=== PATIENT | male | born 1950 | race Caucasian/White ===

== ENCOUNTER → 2016-12-27 | Outpatient (CLI) | payer MEDICARE ==
--- NOTE | 2016-12-27 10:01 | BD ---
EXAMINATION TYPE: MG DEXA axial skeleton. DATE OF EXAM: 12/27/2016 COMPARISON: NONE CLINICAL HISTORY: R29.890 DECREASE IN HEIGHT, Z87.891 EX SMOKER Height: 65.6 Weight: 172 FRAX RISK QUESTIONS: Alcohol (3 or more units per day): MAYBE 1-2 Family History (Parent hip fracture): NO KNOWN FRACTURES Glucocorticoids (More than 3mos): YES (Ex: prednisone, prednisolone, methylprednisolone, dexamethasone, and hydrocortisone). History of Fracture in Adulthood: NO...NOT AFTER 50 YRS OLD Secondary Osteoporosis: NO 1. Type 1 Diabetes: NO 2. Hyperthyroidism: NO 3. Menopause before 45: NA 4. Malnutrition: NO 5. Chronic liver disease: HEP C Rheumatoid Arthritis: NO Current Tobacco Use: QUIT 12 YRS AGO RISK FACTORS HISTORY OF: Family History of Osteoporosis: YES, HIS SISTER Smoke tobacco: QUIT 12 YRS AGO Drink Alcohol: DAILY...STATES, SOCIAL + Active: SOMEWHAT SEDENTARY Diet low in dairy products/other sources of calcium: NO Adrenal Insufficiency: NO HEIGHT LOSS MEDICATIONS: Prednisone or other steroids: YES, ADVAIR, COMBIVENT, SPIRIVA, PREDNISONE How Long: FOR YRS Additional Medications: CILIAS, Additional History: NONE TO NOTE EXAM MEASUREMENTS: Bone mineral densitometry was performed using the [employer] System. Bone mineral density as measured about the Lumbar spine is: ----- L1-L4(G/cm2): 1.083 T Score Values are as follows: ----- L1: -0.8 ----- L2: -0.4 ----- L3: -0.5 ----- L4: -1.6 ----- L1-L4: -0.8 Bone mineral density THIS IS HIS FIRST BONE DENSITY STUDY......BASELINE Bone mineral density about the R hip (g/cm2): 0.948 Bone mineral density about the L hip (g/cm2): 0.886 T Score values are as follows: -----R Neck: -1.5 -----L Neck: -0.8 -----R Total: -0.5 -----L Total: -1.0 Bone mineral density BASELINE STUDY TODAY... FRAX%'S: A 7.0% CHANCE OF A MAJOR OSTEOPOROTIC FX AND A 1.4% CHANCE OF A HIP FX.....PROBABILITY OF F X IN 10 YRS TIME IMPRESSION: Osteopenia (T Score between -2.5 and -1 as noted by T score values There is slightly increased risk of fracture and the patient may be considered for treatment. Re-Screen 2-5 years. Femoral neck level in left hip. NOTE: T-SCORE=SD OF THE YOUNG ADULT MEAN.
--- NOTE | 2016-12-27 10:20 | US ---
EXAMINATION TYPE: US duplex aorta DATE OF EXAM: 12/27/2016 COMPARISON: NONE CLINICAL HISTORY: Decrease in height R29.890, Z87.891 Ex smoker. EXAM MEASUREMENTS: Abdominal Aorta: Proximal: 2.3cm Mid: not visualized due to overlying bowel gas Distal: 1.6cm Bifurcation: 1.0cm 0.8cm Slightly suboptimal, visualized portion of aorta show no aneurysmal change. IMPRESSION: Suboptimal study, visualized portion of aorta through the bifurcation shows no greater th an 3 cm aneurysm. Portions of mid segment are obscured.
== END | disposition home or self-care (01) ==
LOC: RADUSWWP 08:12
PROVIDERS: ATTEND Family Medicine
DX: M85.852 Other specified disorders of bone density and structure, left thigh (principal); I71.4 Abdominal aortic aneurysm, without rupture; R29.890 Loss of height; Z87.891 Personal history of nicotine dependence
CPT/HCPCS: 77080; 93979

== ENCOUNTER → 2017-03-25 | Outpatient (CLI) | payer MEDICARE ==
--- NOTE | 2017-03-25 14:14 | XR ---
EXAMINATION TYPE: XR ribs LT DATE OF EXAM: 03/25/2017 COMPARISON: NONE HISTORY: Left-sided rib pain TECHNIQUE: 4 views are submitted. FINDINGS: There is hyperinflation suggestive of COPD. Pleural-based thickening is noted laterally jason ng the chest wall. Rib cage is intact. No acute displaced rib fracture. Vague attenuation within the head of the humerus is seen on the basis of a small bone infarct. IMPRESSION: 1. No acute displaced rib fracture. 2. Correlate for COPD.
== END ==
LOC: RADXRMAIN 13:56
PROVIDERS: ATTEND Internal Medicine
DX: S22.39XA Fracture of one rib, unspecified side, initial encounter for closed fracture (principal)

== ENCOUNTER → 2020-01-30 | Outpatient (CLI) | payer MEDICARE ==
[2020-01-30 09:07] LABS: African American GFR (CKD) >90 (>60 ml/min/1.73 sqM); Blood Urea Nitrogen 26 mg/dL (9-20); Non-African American GFR(CKD) >90 (>60 ml/min/1.73 sqM)
--- NOTE | 2020-01-30 10:16 | CT ---
EXAMINATION TYPE: CT chest w con DATE OF EXAM: 01/30/2020 COMPARISON: Chest x-ray 01/16/2020 HISTORY: abnormal lung field CT DLP: 352.9 mGycm Automated exposure control for dose reduction was used. CONTRAST: CT scan of the chest is performed with IV Contrast, patient injected with 100 mL of Isovue 300. FINDINGS: LUNGS: There is diffuse emphysematous changes with bullous emphysema noted. There is a 7 mm nodule in the anterior segment of the right upper lobe on axial image 53. No pneumothorax, pleural effusion or overt failure. No focal pneumonia. Subsegmental changes involvin g the lung bases most typical of atelectasis. MEDIASTINUM: Coronary artery calcification. Aorta of normal caliber with atherosclerotic changes. Hea rt size normal. OTHER: Numerous gallstones are seen. Atherosclerotic change of the abdominal aorta. Hypertrophic and degenerative change of the spine. IMPRESSION: 1. Diffuse COPD with a 7 mm nodule in the right upper lobe anterior segment. Nodules too small to champ racterize would recommend a 3 month follow-up CT scan to confirm stability.
== END | disposition home or self-care (01) ==
LOC: RADCTMAIN 08:31
PROVIDERS: ATTEND Internal Medicine
DX: J44.9 Chronic obstructive pulmonary disease, unspecified (principal); R91.1 Solitary pulmonary nodule; Z88.0 Allergy status to penicillin; Z88.8 Allergy status to other drugs, medicaments and biological substances
CPT/HCPCS: 82565; 84520; 71260; 36415; Q9967

== ENCOUNTER → 2021-11-30 | Outpatient (CLI) | payer MEDICARE ==
[2021-11-30 09:33] LABS: African American GFR (CKD) >90 (>60 ml/min/1.73 sqM); Blood Urea Nitrogen 21 mg/dL (9-20); Non-African American GFR(CKD) 87 (>60 ml/min/1.73 sqM)
--- NOTE | 2021-11-30 10:36 | CT ---
EXAMINATION TYPE: CT chest w con DATE OF EXAM: 11/30/2021 COMPARISON: CT dated 01/30/2020 HISTORY: h/o lung nodule CT DLP: 348.6 mGycm Automated exposure control for dose reduction was used. TECHNIQUE: CT scan of the chest is performed with IV Contrast, patient injected with 100 mL of Isovue 300. FINDINGS: LUNGS: The previously described 7 mm nodule at the anterior aspect of the middle lobe has regressed i n the interim measuring less than 3 mm today consistent with a benign nodule. The other previously se en scattered pulmonary nodules are stable without interval progression. Stable atelectasis with groun dglass opacity in the lower lobes. Extensive COPD changes with multiple paraseptal emphysema and air bulla, largest in the right lung apex. Scattered segments of bronchial wall thickening. Patent trache a and main bronchi. No pleural effusion. MEDIASTINUM: No gross cardiomegaly. Coronary calcification/stents. No pathologically enlarged lymph n odes in the chest. No pericardial effusion. OTHER: Cholelithiasis. Degenerative changes of the lower cervical spine. IMPRESSION: Interval regression of the previously seen right middle lobe 7 mm nodule as described above. No new s uspicious or progressive lung lesion. COPD changes. Other incidental findings as described above.
== END | disposition home or self-care (01) ==
LOC: RADCTMAIN 08:46
PROVIDERS: ATTEND Internal Medicine
DX: R91.1 Solitary pulmonary nodule (principal); J44.9 Chronic obstructive pulmonary disease, unspecified
CPT/HCPCS: 82565; 84520; 71260; 36415; Q9967

== ENCOUNTER 2024-06-06 20:22 | Inpatient (IN) | payer MEDICARE ==
--- NOTE | 2024-06-06 20:29 | ED ---
Chest Pain HPI - General Stated Complaint: Chest pain Time Seen by Provider: 06/06/24 20:28 Source: RN notes reviewed, old records reviewed Mode of arrival: ambulatory Limitations: no limitations - History of Present Illness Initial Comments: This is a 73-year-old male to the ER for evaluation today. Patient notes today for evaluation of chest pain severe chest pain feels like he is having a heart attack. Patient has had a right upper blebectomy recently, patient comes in for severe chest pain some shortness of breath but mainly complaining of severe pain pain to his back MD Complaint: chest pain -: hour(s) Onset: during rest Pain Location: substernal, right chest Pain Radiation: back Severity: moderate, severe Severity scale (1-10): 10 Quality: tightness, sharp Consistency: constant Improves With: nothing Worsens With: nothing Anginal Symptoms: dyspnea, sense of impending doom Other Symptoms: palpitations Treatments Prior to Arrival: none - Related Data Allergies Allergy/AdvReac Type Severity Reaction Status Date / Time Penicillins Allergy Rash/Hives Verified 06/06/24 20:40 Review of Systems ROS Statement: Those systems with pertinent positive or pertinent negative responses have been documented in the HPI. ROS Other: All systems not noted in ROS Statement are negative. EKG Findings - EKG Comments: EKG Findings:: EKG is A-fib 77 QRS 101 QTc 444 - EKG Results: EKG: interpreted by ERMD General Exam General appearance: alert, in no apparent distress, anxious, in distress Head exam: Present: atraumatic, normocephalic, normal inspection Eye exam: Present: normal appearance, PERRL, EOMI. Absent: scleral icterus, conjunctival injection, periorbital swelling ENT exam: Present: normal exam, mucous membranes moist Neck exam: Present: normal inspection. Absent: tenderness, meningismus, lymphadenopathy Respiratory exam: Present: normal lung sounds bilaterally. Absent: respiratory distress, wheezes, rales, rhonchi, stridor Cardiovascular Exam: Present: regular rate, normal rhythm, normal heart sounds. Absent: systolic murmur, diastolic murmur, rubs, gallop, clicks GI/Abdominal exam: Present: soft, normal bowel sounds. Absent: distended, tenderness, guarding, rebound, rigid Extremities exam: Present: normal inspection, full ROM, normal capillary refill. Absent: tenderness, pedal edema, joint swelling, calf tenderness Back exam: Present: normal inspection Neurological exam: Present: alert, oriented X3, CN II-XII intact Psychiatric exam: Present: normal affect, normal mood Skin exam: Present: warm, dry, intact, normal color. Absent: rash Course Vital Signs 06/06/24 06/06/24 20:32 21:00 Temperature 98.4 F Pulse Rate 87 86 Respiratory 22 22 Rate Blood Pressure 90/67 102/74 O2 Sat by Pulse 98 97 Oximetry - Reevaluation(s) Reevaluation #1: 06/06/24 20:29 Medical records reviewed Reevaluation #2: 06/06/24 22:25 patients pain is improved Reevaluation #3: 06/06/24 22:25 patient is informed of results and quesitons answered Reevaluation #4: Was pt. sent in by a medical professional or institution (, [facility], ACADEMIC SPECIALIST, urgent care, hospital, or senior living...) When possible be specific @ -no Did you speak to anyone other than the patient for history (EMS, parent, family, police, friend...)? What history was obtained from this source @ -no Did you review nursing and triage notes (agree or disagree)? Why? @ -agree Are old charts reviewed (outside hosp., previous admission, EMS record, old EKG, old radiological studies, urgent care reports/EKG's, senior living records)? Report findings @ -yes Differential Diagnosis (chest pain, altered mental status, abdominal pain women, abdominal pain men, vaginal bleeding, weakness, fever, dyspnea, syncope, headache, dizziness, GI bleed, back pain, seizure, CVA, palpatations, mental health, musculoskeletal)? @ -prior EKG interpreted by me (3pts min.). @ -yes X-rays interpreted by me (1pt min.). @ -yes negative for acute disease CT interpreted by me (1pt min.). @ -no U/S interpreted by me (1pt. min.). @ -no What testing was considered but not performed or refused? (CT, X-rays, U/S, labs)? Why? @ -none What meds were considered but not given or refused? Why? @ -none Did you discuss the management of the patient with other professionals (professionals i.e. Dr., PA, ACADEMIC SPECIALIST, lab, RT, psych nurse, social insurance specialist, bore miner operator, teacher, court security officer, machine adjuster leader case trim)? Give summary @ -no Was smoking cessation discussed for >3mins.? @ -no Was critical care preformed (if so, how long)? @ -no Were there social determinants of health that impacted care today? How? (Homelessness, low income, unemployed, alcoholism, drug addiction, transportation, low edu. Level, literacy, decrease access to med. care, long-term, rehab)? @ -none Was there de-escalation of care discussed even if they declined (Discuss DNR or withdrawal of care, Hospice)? DNR status @ -no What co-morbidities impacted this encounter? (DM, HTN, Smoking, COPD, CAD, Cancer, CVA, ARF, Chemo, Hep., AIDS, mental health diagnosis, sleep apnea, morbid obesity)? @ -none Was patient admitted / discharged? Hospital course, mention meds given and route, prescriptions, significant lab abnormalities, going to OR and other pertinent info. @ - Undiagnosed new problem with uncertain prognosis? @ -no Drug Therapy requiring intensive monitoring for toxicity (Heparin, Nitro, Insulin, Cardizem)? @ -no Were any procedures done? @ -no Diagnosis/symptom? @ - Acute, or Chronic, or Acute on Chronic? @ -Acute Uncomplicated (without systemic symptoms) or Complicated (systemic symptoms)? @ -Complicated Side effects of treatment? @ -no Exacerbation, Progression, or Severe Exacerbation? @ -exacerbation Poses a threat to life or bodily function? How? (Chest pain, [place], [place], pneumonia, PE, COPD, DKA, ARF, appy, cholecystitis, CVA, Diverticulitis, Homicidal, Suicidal, threat to staff... and all critical care pts) @ -yes Reevaluation #5: Differential Chest Pain: Stable Angina, Unstable Angina, STEMI, NSTEMI Aortic Dissection, Pneumothorax, Musculoskeletal, Esophageal Spasm GERD, Cholecystitis, Pancreatitis, Zoster, this is not meant to be an all-inclusive list. - Consultations Consultation #1: spoke yvette mckinney ok for admission Chest Pain MDM - MDM 73 male to the ED for CP, patient to be admitted for CP obs Disposition Clinical Impression: Chest pain, Atypical chest pain Disposition: ADMITTED IP TO THIS HOSP Condition: Serious Is patient prescribed a controlled substance at d/c from ED?: No Referrals: Marcelino Noble MD [Primary Care Provider] - 1-2 days Time of Disposition: 22:50
[2024-06-06 20:51] LABS: Basophils % (A) 0 %; Eosinophils # (A) 0.2 k/uL (0-0.7); Eosinophils % (A) 1 %; HCT 27.9 % (39.0-53.0); HGB 9.2 gm/dL (13.0-17.5); Lymphocytes # (A) 0.7 k/uL (1.0-4.8); Lymphocytes % (A) 5 %; MCHC 33.1 g/dL (31.0-37.0); MCV 90.7 fL (80.0-100.0); Mean Platelet Volume 6.8; Monocytes # (A) 0.5 k/uL (0-1.0); Monocytes % (A) 4 %; Neutrophils # (A) 11.2 k/uL (1.3-7.7); Neutrophils % (A) 88 %; Platelet Count 378 k/uL (150-450); Poikilocytosis Slight; RBC 3.08 m/uL (4.30-5.90); WBC 12.7 k/uL (3.8-10.6)
[2024-06-06 21:00] LABS: INR 1.3 (<1.2); Partial Thromboplastin Time 28.2 sec (22.0-30.0); Prothrombin Time 13.5 sec (10.0-12.5)
[2024-06-06 21:09] LABS: ALT 23 U/L (4-49); AST 30 U/L (17-59); African American GFR (CKD) 89 (>60 ml/min/1.73 sqM); Albumin 3.1 g/dL (3.5-5.0); Alkaline Phosphatase 99 U/L (38-126); Blood Urea Nitrogen 17 mg/dL (9-20); Calcium 8.1 mg/dL (8.4-10.2); Chloride 89 mmol/L (98-107); Glucose 145 mg/dL (74-99); Lipase 184 U/L (23-300); Magnesium 1.8 mg/dL (1.6-2.3); Non-African American GFR(CKD) 77 (>60 ml/min/1.73 sqM); Sodium 130 mmol/L (137-145); Total Bilirubin 0.3 mg/dL (0.2-1.3); Total Protein 6.7 g/dL (6.3-8.2)
[2024-06-06] MEDS: HYDROmorphone 1 MG/ML 1 ML SYRINGE IVP STA (21:09)
[2024-06-06 21:14] LABS: Anion Gap 8 mmol/L; Carbon Dioxide 33 mmol/L (22-30)
--- NOTE | 2024-06-06 21:16 | XR ---
EXAMINATION TYPE: XR chest 1V portable DATE OF EXAM: 06/06/2024 9:05 PM COMPARISON: Chest radiographs from 03/25/2017 CLINICAL INDICATION: Male, 73 years old with history of chest pain TECHNIQUE: XR chest 1V portable Frontal view of the chest. FINDINGS: Lungs/Pleura: Right apical lucency with loculated right pleural effusion superimposed on COPD/emphyse ma. Increased interstitial lung markings present. Pulmonary vascularity: Unremarkable. Heart/mediastinum: Cardiomediastinal silhouette is unremarkable. Musculoskeletal: No acute osseous pathology. IMPRESSION: Right apical loculated pleural effusion, superimposed pneumothorax not excluded. Attention on follow up CT. [facility], , 06/06/2024 9:14 PM
[2024-06-06 21:17] LABS: NT-Pro-B-Type Natriuretic Pept 2550 pg/mL
[2024-06-06 21:28] LABS: Potassium 2.7 mmol/L (3.5-5.1)
[2024-06-06] MEDS ORDERED: NALOXONE 0.4 MG/ML 1 ML VIAL IV PRN (22:22)
[2024-06-06] MEDS ORDERED: ONDANSETRON 4 MG/2 ML VIAL IVP PRN (22:22)
[2024-06-06] MEDS: SODIUM CHLORIDE 0.9% 1,000 ML IV SCH (22:26)
[2024-06-06] MEDS: POTASSIUM BICARBONATE/CIT AC 20 MEQ TABLET.EFF PO ONE ×2 (22:26→23:05)
[2024-06-06] MEDS: HYDROmorphone 1 MG/ML 1 ML SYRINGE IVP PRN (22:44)
--- NOTE | 2024-06-07 00:06 | CT ---
EXAM: CT Angiography Chest With Intravenous Contrast CLINICAL HISTORY: ITS.REASON CT Reason: pain TECHNIQUE: Axial computed tomographic angiography images of the chest with intravenous contrast. CTDI is 28.1 mGy and DLP is 1455.4 mGy-cm. This CT exam was performed using one or more of the following dose reduction techniques: automated exposure control, adjustment of the mA and/or kV according to patient size, and/or use of iterative reconstruction technique. MIP reconstructed images were created and reviewed. COMPARISON: No relevant prior studies available. FINDINGS: Pulmonary arteries: Unremarkable. No pulmonary embolism. Aorta: Atherosclerotic changes of the aorta. No thoracic aortic aneurysm. Lungs: Atelectasis at the LEFT lung base. Small collection in the LEFT lung base measuring approximately 2.8 cm, concerning for a pneumatocele. No mass. Pleural space: Unremarkable. No significant effusion. No pneumothorax. Heart: Unremarkable. No cardiomegaly. No significant pericardial effusion. No evidence of RV dysfunction. Bones/joints: Degenerative changes of the spine. Bilateral pars defects at L5. Bilateral femoral head AVN. No acute fracture. No dislocation. Soft tissues: Unremarkable. Lymph nodes: Unremarkable. No enlarged lymph nodes. Gallbladder and bile ducts: Cholelithiasis. Stomach and bowel: Diverticulosis, without acute diverticulitis. No small bowel obstruction. No free intraperitoneal air. IMPRESSION: Diverticulosis, without acute diverticulitis. No small bowel obstruction. No free intraperitoneal air.
--- NOTE | 2024-06-07 00:35 | CT ---
EXAM: CT Abdomen and Pelvis With Intravenous Contrast CLINICAL HISTORY: ITS.REASON CT Reason: pain TECHNIQUE: Axial computed tomography images of the abdomen and pelvis with intravenous contrast. CTDI is 28.1 mGy and DLP is 1455.4 mGy-cm. This CT exam was performed using one or more of the following dose reduction techniques: automated exposure control, adjustment of the mA and/or kV according to patient size, and/or use of iterative reconstruction technique. COMPARISON: No relevant prior studies available. FINDINGS: Lung bases: Unremarkable. No mass. No consolidation. ABDOMEN: Liver: Unremarkable. No mass. Gallbladder and bile ducts: Cholelithiasis. No ductal dilation. Pancreas: Unremarkable. No mass. No ductal dilation. Spleen: Unremarkable. No splenomegaly. Adrenals: Unremarkable. No mass. Kidneys and ureters: Unremarkable. No solid mass. No hydronephrosis. Stomach and bowel: Diverticulosis, without acute diverticulitis. No small bowel obstruction. No free intraperitoneal air. PELVIS: Appendix: No findings to suggest acute appendicitis. Bladder: Unremarkable. No mass. Reproductive: Unremarkable as visualized. ABDOMEN and PELVIS: Intraperitoneal space: Unremarkable. No free air. No significant fluid collection. Bones/joints: Bilateral pars defects at L5. No acute fracture. No dislocation. Soft tissues: Unremarkable. Vasculature: Unremarkable. No abdominal aortic aneurysm. Lymph nodes: Unremarkable. No enlarged lymph nodes. IMPRESSION: Diverticulosis, without acute diverticulitis. No small bowel obstruction. No free intraperitoneal air.
--- NOTE | 2024-06-07 00:51 | P.HPIM ---
History of Present Illness H&P Date: 06/07/24 History of present illness; 73-year-old man with PMH of CAD with 1 stent alexandra cement, recently diagnosed A-fib (not maintained on Eliquis), COPD on 2-3 L NC at home 31/01. Presents to the emergency department after having severe chest pain that "feels like he is having a heart attack", endorsing severe pain in his back as well, with some associated shortness of breath. He states the pain is centrally located and radiates straight to his back, he describes it as an intense pressure-like pain that he rates as a 10/10. He states it occasionally will drop down to a 9/10, however for the most part has maintained at 10/10. Patient endorses having had a right upper lobe blebectomy for a right apical bleb that have been growing in size over the past few years. Following the surgery the patient states that he did endorse an episode of cardiac arrest for which he underwent CPR, which caused him to break 7 ribs and his sternum. He had been recovering well following that episode in the hospital, however since he is gone home he has had home care but his recovery has been slower according to the patient, as well as his at the bedside. At the time of the intervie w patient rates his pain at approximately 7/10, after receiving pain medication. He does not endorse any shortness of breath or heart palpitations. However he does have some nausea, an episode of vomiting here in the hospital. Imaging: -Chest x-ray done in the ER showed a right apical loculated pleural effusion, superimposed pneumothorax not excluded; follow-up CT recommended -Chest CTA showed atelectasis of the left lung base, along with a small collection of fluid concerning for pneumatocele; diverticulosis, without acute diverticulitis; no small bowel obstruction; no free intraperitoneal air. -CT abdomen/pelvis showed diverticulosis without acute diverticulitis. Otherwise unremarkable -EKG done in the ER showed atrial fibrillation heart rate of 76; QTc 528. Vitals: Height blood pressure 102/74, heart rate 86, respiratory rate 22, SpO2 97% on 3 L nasal cannula Patient admitted to internal medicine service REVIEW OF SYSTEMS: CONSTITUTIONAL: No fever, no malaise, no fatigue. HEENT: No recent visual problems or hearing problems. Denied any sore throat. CARDIOVASCULAR: No chest pain, orthopnea, PND, no palpitations, no syncope. PULMONARY: No shortness of breath, no cough, no hemoptysis. GASTROINTESTINAL: No diarrhea, no nausea, no vomiting, no abdominal pain. NEUROLOGICAL: No headaches, no weakness, no numbness. HEMATOLOGICAL: Denies any bleeding or petechiae. GENITOURINARY: Denies any burning micturition, frequency, or urgency. MUSCULOSKELETAL/RHEUMATOLOGICAL: Denies any joint pain, swelling, or any muscle pain. ENDOCRINE: Denies any polyuria or polydipsia. The rest of the 14-point review of systems is negative. PHYSICAL EXAMINATION: GENERAL: The patient is alert and oriented x3, not in any acute distress. Disheveled. HEENT: . EOMI. No scleral icterus. No conjunctival pallor. Normocephalic, atraumatic. CARDIOVASCULAR: S1 and S2 present. No murmurs, rubs, or gallops. PULMONARY: audible breath sounds bilaterally with expiratory wheezing ABDOMEN: Soft, nontender, nondistended, normoactive bowel sounds. No palpable organomegaly. MUSCULOSKELETAL: No joint swelling or deformity. EXTREMITIES: No cyanosis, clubbing, or pedal edema. NEUROLOGICAL: Gross neurological examination did not reveal any focal deficits. SKIN: No rashes. Assessment and plan 73-year-old man with PMH of. Presents to the emergency department with severe chest pain that radiates to his back, along with some shortness of breath noted. Discussed with the ED patient medicine internal medicine service for further evaluation. #Atypical chest pain, r/o ACS #s/p right-sided apical blebectomy in April #Recently diagnosed atrial fibrillation -Trend troponins: Initial troponins <0.012 -EKG done in the ER showed atrial fibrillation heart rate of 76; QTc 528. -Chest x-ray done in the ER showed a right apical loculated pleural effusion, superimposed pneumothorax not excluded; follow-up CT recommended -Chest CTA showed atelectasis of the left lung base, along with a small collecti on of fluid concerning for pneumatocele; diverticulosis, without acute diverticulitis; no small bowel obstruction; no free intraperitoneal air. -CT abdomen/pelvis showed diverticulosis without acute diverticulitis. Otherwise unremarkable -proBNP 2550 -Maintained at home on amiodarone 200 mg daily, metoprolol 12.5 mg twice daily, Norvasc 10 mg daily -Continue with nitroglycerin as needed for pain -Initiate aspirin 81 mg daily -Continue home rosuvastatin 40 mg daily -Cardiac monitoring -Supplemental oxygen as needed -Heart healthy diet -Cardiology consulted -Echocardiogram ordered #COPD maintained on 2-3 L nasal cannula home oxygen 31/01 -Currently maintained on nasal cannula -Monitor SpO2 -Titrate O2 as needed #Leukocytosis -Initial WBC 12.7 -Continue to monitor CBC #History of pedal edema/fluid retention -Maintained at home on torsemide 20 mg daily #Acute normocytic anemia in the setting of chronic anemia -Initial hemoglobin 9.2, MCV 90.7 -Continue to monitor CBC -If hemoglobin <7, transfusion -Maintained at home with iron pills #Hyponatremia -Initial sodium 130 -Monitor BMP #Chronic hypokalemia -Initial potassium 2.7 -Received total of 40 mEq potassium bicarbonate in the emergency department -Potassium recheck pending -Continue to monitor BMP #Hypocalcemia -Initial calcium 8.1 -Continue to monitor BMP GI prohylaxis: Protonix 40 mg daily DVT prophylaxis: Lovenox 40 mg daily Dictation was produced using [employer] dictation software. please excuse any grammatical, word or spelling errors. I have seen and evaluated the patient today. I Discussed the case with the resident and agree with the resident's findings I edited the assessment and plan as necessary as documented in the resident's note. Past Medical History Past Medical History: Atrial Fibrillation, Coronary Artery Disease (CAD), COPD, Prostate Disorder Additional Past Medical History / Comment(s): cardiac arrest 04/2024, History of Any Multi-Drug Resistant Organisms: None Reported Past Surgical History: Heart Catheterization, Heart Catheterization With Stent Past Psychological History: Anxiety, Depression Smoking Status: Former smoker Medications and Allergies Allergies Allergy/AdvReac Type Severity Reaction Status Date / Time Penicillins Allergy Rash/Hives Verified 06/06/24 20:40 Physical Exam Vitals: Vital Signs Temp Pulse Resp BP Pulse Ox 06/06/24 23:00 80 18 118/79 95 06/06/24 22:00 82 18 113/69 95 06/06/24 21:00 86 22 102/74 97 06/06/24 20:32 98.4 F 87 22 90/67 98 Intake and Output 06/06/24 06/06/24 06/07/24 14:59 22:59 06:59 Other: Weight 71.668 kg Results CBC & Chem 7: 06/06/24 20:31 06/07/24 00:28 Labs: Abnormal Lab Results - Last 24 Hours (Table) 06/06/24 06/06/24 06/06/24 Range/Units 20:31 20:31 20:31 WBC 12.7 H (3.8-10.6) k/uL RBC 3.08 L (4.30-5.90) m/uL Hgb 9.2 L (13.0-17.5) gm/dL Hct 27.9 L (39.0-53.0) % Neutrophils # 11.2 H (1.3-7.7) k/uL Lymphocytes # 0.7 L (1.0-4.8) k/uL PT 13.5 H (10.0-12.5) sec INR 1.3 H (<1.2) Sodium 130 L (137-145) mmol/L Potassium 2.7 L* (3.5-5.1) mmol/L Chloride 89 L (98-107) mmol/L Carbon Dioxide 33 H (22-30) mmol/L Glucose 145 H (74-99) mg/dL Calcium 8.1 L (8.4-10.2) mg/dL Albumin 3.1 L (3.5-5.0) g/dL
[2024-06-07] MEDS: IPRATROPIUM-ALBUTEROL 3 ML NEB INHALATION SCH ×2 (03:05→08:50)
[2024-06-07 03:38] LABS: Basophils % (A) 0 %; Eosinophils % (A) 0 %; HGB 9.4 gm/dL (13.0-17.5); Lymphocytes # (A) 0.8 k/uL (1.0-4.8); Lymphocytes % (A) 4 %; MCH 30.6 pg (25.0-35.0); MCHC 33.6 g/dL (31.0-37.0); MCV 90.9 fL (80.0-100.0); Monocytes # (A) 0.7 k/uL (0-1.0); Monocytes % (A) 4 %; Neutrophils # (A) 16.5 k/uL (1.3-7.7); Neutrophils % (A) 90 %; Platelet Count 425 k/uL (150-450); Poikilocytosis Slight; RBC 3.08 m/uL (4.30-5.90); RDW 14.4 % (11.5-15.5); WBC 18.3 k/uL (3.8-10.6)
[2024-06-07 04:38] LABS: ALT 24 U/L (4-49); AST 31 U/L (17-59); African American GFR (CKD) 74 (>60 ml/min/1.73 sqM); Albumin 3.4 g/dL (3.5-5.0); Alkaline Phosphatase 105 U/L (38-126); Blood Urea Nitrogen 20 mg/dL (9-20); Calcium 8.5 mg/dL (8.4-10.2); Chloride 88 mmol/L (98-107); Glucose 147 mg/dL (74-99); Magnesium 1.7 mg/dL (1.6-2.3); Non-African American GFR(CKD) 64 (>60 ml/min/1.73 sqM); Phosphorus 3.6 mg/dL (2.5-4.5); Potassium 3.8 mmol/L (3.5-5.1); Sodium 130 mmol/L (137-145); Total Bilirubin 0.4 mg/dL (0.2-1.3); Total Protein 7.2 g/dL (6.3-8.2)
[2024-06-07 04:43] LABS: Anion Gap 6 mmol/L; Carbon Dioxide 36 mmol/L (22-30)
[2024-06-07] MEDS: METOPROLOL SUCCINATE (ER) 25 MG TAB.ER.24H PO STA (05:15)
[2024-06-07 05:30] LABS: Appearance,Urine Clear (Clear); Bilirubin,Urine Negative (Negative); Blood,Urine Negative (Negative); Color,Urine Light Yellow; Glucose,Urine (UA) Negative (Negative); Ketones,Urine Negative (Negative); Leukocyte Esterase,Urine Negative (Negative); Nitrite,Urine Negative (Negative); PH, Urine 5.5 (5.0-8.0); Protein,Urine Trace (Negative); Urobilinogen,Urine <2.0 mg/dL (<2.0)
[2024-06-07 05:34] LABS: Specific Gravity,Urine >1.050 (1.001-1.035)
[2024-06-07] MEDS: PANTOPRAZOLE 40 MG TABLET PO SCH (06:39)
[2024-06-07] MEDS: ATORVASTATIN 40 MG TAB PO SCH (08:11)
[2024-06-07] MEDS: TORSEMIDE 20 MG TAB PO SCH (08:11)
[2024-06-07] MEDS: AMIODARONE 200 MG TAB PO SCH ×2 (08:11→20:48)
[2024-06-07] MEDS: amLODIPine 10 MG TAB PO SCH (08:11)
[2024-06-07] MEDS: METOPROLOL SUCCINATE (ER) 25 MG TAB.ER.24H PO SCH (08:12)
[2024-06-07] MEDS: ONDANSETRON 4 MG/2 ML VIAL IVP PRN (13:05)
--- NOTE | 2024-06-07 13:12 | P.CRDCN ---
History of Present Illness Consult date: 06/07/24 Requesting physician: Camila Dimas Reason for Consult (text): chest pain Chief complaint: chest pain History of present illness: This is a pleasant 73-year-old male patient of Dr. Allison with past medical history of atrial fibrillation, COPD, recent right upper lobe lobectomy for right apical bleb done at [facility] after which he had an episode of cardiac arrest and underwent CPR causing fractures to 7 ribs and his sternum. Since that time he has been having ongoing chest discomfort.. Presented to the hospital with complaints of significant worsening of his chest discomfort that he rated a 10 out of 10. The pain was worse with deep inspiration. Pain was improved with pain medications given in the ER. Currently rating the pain about 6 out of 10 and at its best about a 4 out of 10. Diagnostics -EKG: Atrial fibrillation nonspecific ST-T wave abnormalities -Chest x-ray: Right apical loculated pleural effusion, superimposed pneumothorax not excluded, attention on follow-up CT -CT: Diverticulosis, without acute diverticulitis, no small bowel obstruction, no free intraperitoneal air -Laboratory studies: White blood cell count 18.3, hemoglobin 9.4, sodium 130, potassium 3.8, BUN 20, creatinine 1.13, troponin negative x 3, NT proBNP 2550 -Home cardiac medications: Rosuvastatin 20 mg p.o. daily, torsemide 20 mg p.o. daily, potassium 40 mill equivalents p.o. daily, metoprolol tartrate 25 mg p.o. twice daily, Eliquis 5 mg p.o. twice daily, amiodarone 200 mg p.o. twice daily. Patient was previously on amlodipine however stopped this due to potential side effects and blood pressure has been stable -Prior stress test: 02/2024 no evidence of ischemia -Echocardiogram: Unknown -Cardiac catheterization: Unknown Review Of Systems: At the time of my exam: CONSTITUTIONAL: Denies fever or chills. HEENT: Denies blurred vision, vision changes. CARDIOVASCULAR: reproducible chest pain. Denies orthopnea. Denies PND. Denies palpitations, dizziness, or syncope. RESPIRATORY: Denies shortness of breath, wheezing, or cough. Denies hemoptysis. GASTROINTESTINAL: Denies abdominal pain. Denies nausea or vomiting. Denies bleeding. HEMATOLOGIC: Denies bleeding disorders. GENITOURINARY: Denies hematuria. SKIN: Denies puritis. Denies rash. PHYSICAL EXAMINATION: This is a 73-year-old male in no apparent distress at the time of my examination. VITAL SIGNS: Reviewed. HEENT: Head is atraumatic, normocephalic. Pupils are equal, round. Sclerae anicteric. Conjunctivae are clear. Mucous membranes of the mouth are moist. Neck is supple. There is no elevated jugular venous pressure. No carotid bruit is heard. CHEST EXAMINATION: Expiratory wheezing. No rales or rhonchi. Respirations even and nonlabored. HEART EXAMINATION: Heart irregular rate and rhythm, positive S1 and S2. No S3. No S4. No clicks, rubs or murmurs. ABDOMEN: Soft, nontender. Bowel sounds are heard. No organomegaly noted. EXTREMITIES: 2+ peripheral pulses with no evidence of peripheral edema and no calf tenderness noted. NEUROLOGIC EXAMINATION: Patient is awake, alert and oriented x3. Assessment: 1. Chest pain, likely secondary to trauma status post CPR 2. Persistent atrial fibrillation, anticoagulated on Eliquis 3. COPD 4. Status post right sided apical blebectomy in April Plan: From cardiology's perspective acute coronary event has been ruled out. Stay off amlodipine. Continue metoprolol tartrate 25 mg p.o. twice daily, amiodarone, torsemide and Eliquis. Patient may be discharged home and follow-up in the office as an outpatient. Thank you kindly for this consultation. Nurse practitioner note has been reviewed, I agree with documented findings and plan of care. Patient was seen and examined. Past Medical History Past Medical History: Atrial Fibrillation, Coronary Artery Disease (CAD), COPD, Prostate Disorder Additional Past Medical History / Comment(s): cardiac arrest 04/2024, History of Any Multi-Drug Resistant Organisms: None Reported Past Surgical History: Heart Catheterization, Heart Catheterization With Stent Additional Past Surgical History / Comment(s): bilat knee replacement Date of Last Stent Placement:: 2021 Past Psychological History: Anxiety, Depression Smoking Status: Former smoker Medications and Allergies Home Medications Medication Instructions Recorded Confirmed Type Amiodarone [Cordarone] 200 mg PO BID 06/07/24 06/07/24 History Apixaban [Eliquis] 5 mg PO BID 06/07/24 06/07/24 History Budesonide [Pulmicort] 0.5 mg INHALATION RT-BID 06/07/24 06/07/24 History Ferrous Sulfate [Feosol] 325 mg PO BID 06/07/24 06/07/24 History Folic Acid 1 mg PO DAILY 06/07/24 06/07/24 History Ipratropium-Albuterol Nebulize 3 ml INHALATION RT-TID 06/07/24 06/07/24 History [Duoneb 0.5 mg-3 mg/3 ml Soln] Metoprolol Tartrate [Lopressor] 25 mg PO BID 06/07/24 06/07/24 History Multivitamins, Thera [Multivitamin 1 tab PO DAILY 06/07/24 06/07/24 History (formulary)] Pantoprazole [Protonix] 40 mg PO DAILY 06/07/24 06/07/24 History Potassium Chloride ER [K-Dur 20] 40 meq PO DAILY 06/07/24 06/07/24 History Rosuvastatin [Crestor] 20 mg PO DAILY 06/07/24 06/07/24 History Sennosides-Docusate Sodium 1 tab PO BID 06/07/24 06/07/24 History [Senokot-S] Torsemide [Demadex] 20 mg PO DAILY 06/07/24 06/07/24 History Allergies Allergy/AdvReac Type Severity Reaction Status Date / Time Penicillins Allergy Rash/Hives Verified 06/07/24 09:08 sertraline [From Zoloft] AdvReac Unknown Verified 06/07/24 09:10 Physical Exam Vitals: Vital Signs Temp Pulse Pulse Resp BP BP Pulse Ox 06/07/24 12:26 108 H 06/07/24 12:17 104 H 06/07/24 09:03 100 06/07/24 08:51 102 H 06/07/24 06:45 98.3 F 114 H 18 123/75 98 06/07/24 04:52 113 H 113/74 98 06/07/24 02:06 98.8 F 114 H 19 101/63 92 L 06/07/24 01:10 06/07/24 01:00 108 H 20 104/70 95 06/06/24 23:00 80 18 118/79 95 06/06/24 22:00 82 18 113/69 95 06/06/24 21:00 86 22 102/74 97 06/06/24 20:32 98.4 F 87 22 90/67 98 FiO2 06/07/24 12:26 06/07/24 12:17 06/07/24 09:03 06/07/24 08:51 06/07/24 06:45 06/07/24 04:52 06/07/24 02:06 06/07/24 01:10 32 06/07/24 01:00 06/06/24 23:00 06/06/24 22:00 06/06/24 21:00 06/06/24 20:32 Intake and Output 06/06/24 06/07/24 06/07/24 22:59 06:59 14:59 Output Total 200 Balance -200 Output: Urine 200 Other: Voiding Method Toilet Urinal Weight 71.668 kg 71.668 kg Results 06/07/24 03:02 06/07/24 03:02 Cardiac Enzymes 06/06/24 06/06/24 06/07/24 Range/Units 20:31 20:31 00:24 AST 30 (17-59) U/L Troponin I <0.012 <0.012 (0.000-0.034) ng/mL 06/07/24 06/07/24 Range/Units 03:02 03:02 AST 31 (17-59) U/L Troponin I <0.012 (0.000-0.034) ng/mL Coagulation 06/06/24 Range/Units 20:31 PT 13.5 H (10.0-12.5) sec APTT 28.2 (22.0-30.0) sec CBC 06/06/24 06/07/24 Range/Units 20:31 03:02 WBC 12.7 H 18.3 H (3.8-10.6) k/uL RBC 3.08 L 3.08 L (4.30-5.90) m/uL Hgb 9.2 L 9.4 L (13.0-17.5) gm/dL Hct 27.9 L 28.0 L (39.0-53.0) % Plt Count 378 425 (150-450) k/uL Comprehensive Metabolic Panel 06/06/24 06/07/24 06/07/24 Range/Units 20:31 00:28 03:02 Sodium 130 L 130 L (137-145) mmol/L Potassium 2.7 L* 3.6 3.8 (3.5-5.1) mmol/L Chloride 89 L 88 L (98-107) mmol/L Carbon Dioxide 33 H 36 H (22-30) mmol/L BUN 17 20 (9-20) mg/dL Creatinine 0.97 1.13 (0.66-1.25) mg/dL Glucose 145 H 147 H (74-99) mg/dL Calcium 8.1 L 8.5 (8.4-10.2) mg/dL AST 30 31 (17-59) U/L ALT 23 24 (4-49) U/L Alkaline Phosphatase 99 105 (38-126) U/L Total Protein 6.7 7.2 (6.3-8.2) g/dL Albumin 3.1 L 3.4 L (3.5-5.0) g/dL Current Medications Generic Name Dose Route Start Last Admin Trade Name Freq PRN Reason Stop Dose Admin Albuterol/Ipratropium 3 ml 06/07/24 08:00 06/07/24 12:16 Ipratropium-Albuterol 3 Ml Neb INHALATION 3 ml RT-TID GUDELIA Administration Albuterol/Ipratropium 3 ml 06/07/24 03:06 Ipratropium-Albuterol 3 Ml Neb INHALATION RT-Q2H PRN Shortness Of Breath Or Wheezing Amiodarone HCl 200 mg 06/07/24 09:00 06/07/24 08:11 Amiodarone 200 Mg Tab PO 200 mg DAILY GUDELIA Administration Atorvastatin Calcium 40 mg 06/07/24 09:00 06/07/24 08:11 Atorvastatin 40 Mg Tab PO 40 mg DAILY UGDELIA Administration Hydromorphone HCl 1 mg 06/06/24 22:22 06/07/24 09:04 Hydromorphone 1 Mg/Ml 1 Ml Syringe IVP 1 mg Q3HR PRN Administration Severe Pain (Scale 7 to 10) Sodium Chloride 1,000 mls @ 75 mls/hr 06/06/24 22:30 06/06/24 22:26 Saline 0.9% IV 75 mls/hr .[id number] GUDELIA Administration Metoprolol Succinate 12.5 mg 06/07/24 09:00 06/07/24 08:12 Metoprolol Succinate (Er) 25 Mg Tab.Er.24h PO 12.5 mg BID GUDELIA Administration Naloxone HCl 0.2 mg 06/06/24 22:22 Naloxone 0.4 Mg/Ml 1 Ml Vial IV Q2M PRN Opioid Reversal Pantoprazole Sodium 40 mg 06/07/24 07:30 06/07/24 06:39 Pantoprazole 40 Mg Tablet PO 40 mg [id number] GUDELIA Administration Torsemide 20 mg 06/07/24 09:00 06/07/24 08:11 Torsemide 20 Mg Tab PO 20 mg DAILY GUDELIA Administration Intake and Output 06/06/24 06/07/24 06/07/24 22:59 06:59 14:59 Output Total 200 Balance -200 Output: Urine 200 Other: Voiding Method Toilet Urinal Weight 71.668 kg 71.668 kg 06/07/24 03:02 06/07/24 03:02
[2024-06-07] MEDS: HYDROcodone/APAP 7.5-325MG 1 EACH TAB PO PRN (14:15)
[2024-06-07] MEDS: methylPREDNISolone SOD SUCCI 125 MG/2 ML VIAL IV SCH (14:15)
--- NOTE | 2024-06-07 15:23 | P.CNPUL ---
History of Present Illness Consult date: 06/07/24 Reason for consult: dyspnea, chest pain, COPD History of present illness: This is a 73-year-old male patient who presented to the hospital because of an acute chest pain has been going on for the past 24 to 48 hours. The patient's pain is located over the epigastric and left anterior chest area, somewhat pleuritic in nature worse with deep breathing. He describes his pain to be 10 out of 10 in severity and currently the pain is subsided and is probably in the order of 5 out of 10. He has chronic dyspnea as the patient is known to have a dvanced COPD and the patient has been oxygen dependent at 2 L/min nasal cannula on outpatient basis. The patient has previous history of endobronchial valve insertion which failed to improve his chronic exertional dyspnea. Based on that, the valve has been removed and the patient was subsequently referred to a surgical right upper lobe bullectomy and the surgery was done at [facility] on 04/11/2024. Postop, his course was complicated the patient reports to have had a cardiac arrest requiring CPR and there was also traumatic injury to his seventh rib and sternum during the process. Noted, is not producing much of sputum. He is bronchospastic and wheezy. No edema lower extremities. No hemoptysis. The viral screen was negative. Procalcitonin level was 0.2. Electrolytes show a sodium level of 130, potassium of 3.8, bicarb of 36, BUN is 20 with a catheter 1.1. WBC count is 18.3 with a hemoglobin 9.4 and a platelet count of 425. The EKG is showing a normal sinus rhythm, slightly tachycardia with a heart rate of 111 at time of admission with a first-degree AV block. No ST segment changes and the cardiac enzymes were negative. CT of the chest was done and showed no evidence of any pulmonary embolism. A large bolus was seen in the right upper lobe that was fluid-filled. No air-fluid level. No gas. No significant consolidation noted. The patient did have bullous emphysematous changes bilaterally. No masses identified. No cardiomegaly. CAT scan of the abdomen also showed evidence of diverticulosis without diverticulitis. Review of Systems Constitutional: Reports as per HPI Eyes: denies as per HPI, denies blurred vision, denies bulging eye, denies decreased vision, denies diplopia, denies discharge, denies dry eye, denies irritation, denies itching, denies pain, denies photophobia, denies loss of peripheral vision, denies loss of vision, denies tunnel vision/blind spots Ears: deny: decreased hearing, ear discharge, earache, tinnitus Ears, nose, mouth and throat: Reports as per HPI Breasts: absent: as per HPI, gynecomastia Cardiovascular: Reports chest pain, Reports decreased exercise tolerance, Reports dyspnea on exertion Respiratory: Reports cough, Reports dyspnea, Reports home oxygen Gastrointestinal: Reports as per HPI Musculoskeletal: Reports as per HPI Musculoskeletal: absent: ankle pain, ankle stiffness, ankle swelling, as per HPI, elbow pain, elbow stiffness, elbow swelling, foot pain, foot stiffness, foot swelling, hand pain, hand stiffness, hand swelling, hip pain, hip stiffness, hip swelling, knee pain, knee stiffness, knee swelling, shoulder pain, shoulder stiffness, shoulder swelling, wrist pain, wrist stiffness, wrist swelling Integumentary: Reports as per HPI Neurological: Reports as per HPI Psychiatric: Reports as per HPI Endocrine: Reports as per HPI Allergic/Immunologic: Reports as per HPI Past Medical History Past Medical History: Atrial Fibrillation, Coronary Artery Disease (CAD), COPD, Prostate Disorder Additional Past Medical History / Comment(s): cardiac arrest 04/2024, History of Any Multi-Drug Resistant Organisms: None Reported Past Surgical History: Heart Catheterization, Heart Catheterization With Stent Additional Past Surgical History / Comment(s): bilat knee replacement Date of Last Stent Placement:: 2021 Past Psychological History: Anxiety, Depression Smoking Status: Former smoker Medications and Allergies Home Medications Medication Instructions Recorded Confirmed Type Amiodarone [Cordarone] 200 mg PO BID 06/07/24 06/07/24 History Apixaban [Eliquis] 5 mg PO BID 06/07/24 06/07/24 History Budesonide [Pulmicort] 0.5 mg INHALATION RT-BID 06/07/24 06/07/24 History Ferrous Sulfate [Feosol] 325 mg PO BID 06/07/24 06/07/24 History Folic Acid 1 mg PO DAILY 06/07/24 06/07/24 History Ipratropium-Albuterol Nebulize 3 ml INHALATION RT-TID 06/07/24 06/07/24 History [Duoneb 0.5 mg-3 mg/3 ml Soln] Metoprolol Tartrate [Lopressor] 25 mg PO BID 06/07/24 06/07/24 History Multivitamins, Thera [Multivitamin 1 tab PO DAILY 06/07/24 06/07/24 History (formulary)] Pantoprazole [Protonix] 40 mg PO DAILY 06/07/24 06/07/24 History Potassium Chloride ER [K-Dur 20] 40 meq PO DAILY 06/07/24 06/07/24 History Rosuvastatin [Crestor] 20 mg PO DAILY 06/07/24 06/07/24 History Sennosides-Docusate Sodium 1 tab PO BID 06/07/24 06/07/24 History [Senokot-S] Torsemide [Demadex] 20 mg PO DAILY 06/07/24 06/07/24 History Allergies Allergy/AdvReac Type Severity Reaction Status Date / Time Penicillins Allergy Rash/Hives Verified 06/07/24 09:08 sertraline [From Zoloft] AdvReac Unknown Verified 06/07/24 09:10 Physical Exam Vitals: Vital Signs Temp Pulse Pulse Resp BP BP Pulse Ox 06/07/24 14:05 99 F 97 17 104/71 100 06/07/24 12:26 108 H 06/07/24 12:17 104 H 06/07/24 09:03 100 06/07/24 08:51 102 H 06/07/24 06:45 98.3 F 114 H 18 123/75 98 06/07/24 04:52 113 H 113/74 98 06/07/24 02:06 98.8 F 114 H 19 101/63 92 L 06/07/24 01:10 06/07/24 01:00 108 H 20 104/70 95 06/06/24 23:00 80 18 118/79 95 06/06/24 22:00 82 18 113/69 95 06/06/24 21:00 86 22 102/74 97 06/06/24 20:32 98.4 F 87 22 90/67 98 FiO2 06/07/24 14:05 06/07/24 12:26 06/07/24 12:17 06/07/24 09:03 06/07/24 08:51 06/07/24 06:45 06/07/24 04:52 06/07/24 02:06 06/07/24 01:10 32 06/07/24 01:00 06/06/24 23:00 06/06/24 22:00 06/06/24 21:00 06/06/24 20:32 Intake and Output 06/07/24 06/07/24 06/07/24 06:59 14:59 22:59 Intake Total 118 Output Total 200 1200 Balance -200 -1082 Intake: Oral 118 Output: Urine 200 1200 Other: Voiding Method Toilet Urinal Weight 71.668 kg The patient appeared well nourished and normally developed. Vital signs as documented. Head exam is unremarkable. No scleral icterus or corneal arcus noted. Neck is without jugular venous distension, thyromegaly, or carotid bruits. Carotid upstrokes are brisk bilaterally. Lungs examination shows marked diminished breath sounds bilaterally along with prolongation of the exhalation phase of breathing and diffuse expiratory wheezes throughout the lung field bilaterally. Cardiac exam reveals the PMI to be normally sized and situated. Rhythm is regular. First and second heart sounds normal. No murmurs, rubs or gallops. Abdominal exam reveals normal bowel sounds, no masses, no organomegaly and no aortic enlargement. Extremities are nonedematous and both femoral and pedal pulses are normal. Examination of the skin revealed no evidence of significant rashes, suspicious appearing nevi or other concerning lesions. Neurologically, the patient is awake and alert and the patient does not have any focal neurological deficit. Cranial nerves are essentially intact. Results - Laboratory Findings CBC and BMP: 06/07/24 03:02 06/07/24 03:02 PT/INR, D-dimer PT 13.5 sec (10.0-12.5) H 06/06/24 20:31 INR 1.3 (<1.2) H 06/06/24 20:31 Abnormal lab findings: Abnormal Labs 06/06/24 06/06/24 06/06/24 20:31 20:31 20:31 WBC 12.7 H RBC 3.08 L Hgb 9.2 L Hct 27.9 L Neutrophils # 11.2 H Lymphocytes # 0.7 L PT 13.5 H INR 1.3 H Sodium 130 L Potassium 2.7 L* Chloride 89 L Carbon Dioxide 33 H Glucose 145 H Calcium 8.1 L Albumin 3.1 L Ur Specific [place] Urine Protein 06/07/24 06/07/24 06/07/24 03:02 03:02 05:05 WBC 18.3 H RBC 3.08 L Hgb 9.4 L Hct 28.0 L Neutrophils # 16.5 H Lymphocytes # 0.8 L PT INR Sodium 130 L Potassium Chloride 88 L Carbon Dioxide 36 H Glucose 147 H Calcium Albumin 3.4 L Ur Specific [place] >1.050 H Urine Protein Trace H - Diagnostic Findings Chest x-ray: image reviewed Assessment and Plan Plan: Acute pleuritic chest pain, obviously the pain is noncardiac in nature. No evidence of any pulm embolism. No clear indication for pneumonia based on the CAT scan of the chest. Reviewed the CT of the chest and the patient has postsurgical changes with right upper bullectomy and there is some fluid collection in the right upper lobe which could be residual from his recent surgery. The fluid is somewhat loculated. No air-fluid levels. No gas. Procalcitonin level is low. No significant sputum production. Mild leukocytosis. Infection is felt to be less likely although it cannot be completely excluded Advanced COPD with chronic hypoxic respiratory failure currently on 2 L of oxygen by nasal cannula Previous history of [place] valve insertion and subsequent removal for COPD management and treatment of chronic exertional dyspnea Right upper bullectomy done on 04/11/2024 at [facility] Bullous emphysematous changes bilaterally with some residual bullae scattered throughout the lung enriquez bilaterally Loculated fluid right upper lobe as discussed above, likely postsurgical. Infected bolus cannot be completely excluded Mild leukocytosis History of cardiopulmonary arrest occurred following a surgical right upper bullectomy. The details of this event is not known. This was a postsurgical rest and the patient apparently received CPR. Diverticulosis Chronic atrial fibrillation maintained on anticoagulation with Eliquis Hyperlipidemia Plan Oxygenation is stable Monitor white cell count Empiric antibiotic coverage with oral Augmentin IV Solu-Medrol 60 mg every 6 hours optimize COPD and treat nonspecific symptoms of pleurisy Continue bronchodilators with DuoNeb [facility] for pain control 7.5 mg every 6 hours on a as needed basis Resume home medications Echocardiogram Cardiology consultation Will follow
[2024-06-07] MEDS: BUDESONIDE 0.5 MG/2 ML NEBU INHALATION SCH (20:37)
[2024-06-07] MEDS: AMOXIC-POT CLAV 875-125MG 1 EACH TAB PO SCH (20:48)
[2024-06-07] MEDS: METOPROLOL TARTRATE 25 MG TAB PO SCH (20:48)
[2024-06-07] MEDS: APIXABAN 5 MG TAB PO SCH (20:48)
[2024-06-08] MEDS: IPRATROPIUM-ALBUTEROL 3 ML NEB INHALATION PRN (00:28)
[2024-06-08 10:34] LABS: Basophils # (A) 0 X 10*3/uL (0.00-0.10); Basophils % (A) 0 %; Eosinophils # (A) 0 X 10*3/uL (0.04-0.35); Eosinophils % (A) 0 %; HCT 25.9 % (39.6-50.0); HGB 8.3 g/dL (13.0-17.0); Lymphocytes # (A) 0.41 X 10*3/uL (0.90-5.00); Lymphocytes % (A) 4.6 %; MCH 29.7 pg (27.0-32.0); MCV 92.8 FL (80.0-97.0); Mean Platelet Volume 9.3 FL (9.5-12.2); Monocytes # (A) 0.16 X 10*3/uL (0.20-1.00); Monocytes % (A) 1.8 %; NRBC Per 100 WBC 0 X 10*3/uL (0.00-0.01); Neutrophils # (A) 8.34 X 10*3/uL (1.80-7.70); Neutrophils % (A) 92.8 %; Platelet Count 347 X 10*3/uL (140-440); RBC 2.79 X 10*6/uL (4.40-5.60); RDW 14.1 % (11.5-14.5); WBC 8.98 X 10*3/uL (4.50-10.00)
[2024-06-08 10:50] LABS: BUN/Creat Ratio 20.09 Ratio (12.00-20.00); Blood Urea Nitrogen 22.1 mg/dL (9.0-27.0); Glucose 167 mg/dL (70-110)
[2024-06-08 10:51] LABS: ALT 24 U/L (10-49); AST 29 U/L (14-35); Albumin 3.5 g/dL (3.8-4.9); Albumin/Globulin Ratio 0.92 Ratio (1.60-3.17); Alkaline Phosphatase 91 U/L (41-126); Calcium 9.2 mg/dL (8.7-10.3); Chloride 89 mmol/L (96-109); Globulin 3.8 g/dL (1.6-3.3); Potassium 4.3 mmol/L (3.5-5.5); Sodium 133 mmol/L (135-145); Total Bilirubin 0.2 mg/dL (0.3-1.2); Total Protein 7.3 g/dL (6.2-8.2)
[2024-06-08 12:07] VITALS: BMI 24.0
--- NOTE | 2024-06-08 14:53 | P.PN ---
Subjective Progress Note Date: 06/08/24 PROGRESS NOTE The patient is a 73-year-old male with known history of CAD, atrial flutter and severe pulmonary disease status post right upper lobe bullectomy done at [facility] recently. He presented with respirophasic chest pain and worsening dyspnea. He is feeling better this morning, his breathing is better. He has no significant pain at this time. He denies any dizziness or palpitation s. He denies any nausea. He was evaluated by the pulmonary service yesterday and was started on steroids. Medications: Amiodarone 200 mg twice a day, Eliquis 5 mg twice a day, Lipitor 40 mg daily, methylprednisolone, metoprolol tartrate 25 mg twice a day, Demadex 20 mg daily, Protonix PHYSICAL EXAMINATION: Blood pressure 115/70 heart rate 85 LUNGS: Mild wheezing HEART: Irregular rate and rhythm, S1, S2. No S3. Systolic ejection murmur ABDOMEN: Soft, nontender, no organomegaly EXTREMETIES: +1 edema LAB: Hemoglobin 8.3, potassium 4.3, BUN 22, creatinine 1.1 IMPRESSION: 1. Musculoskeletal chest discomfort 2. Severe COPD status post right sided apical bullectomy done in April at [facility] 3. Chronic persistent flutter, anticoagulated 4. History of CAD status post PCI, done in [place] PLAN: 1. Decrease amiodarone 2. Continue present therapy 3. Follow renal function and hemoglobin 4. Depending on his progress further recommendations will be made Objective - Vital Signs Vital signs: Vital Signs Temp 97.7 F 06/08/24 07:00 Pulse 85 06/08/24 11:17 Resp 16 06/08/24 07:00 BP 115/70 06/08/24 07:00 Pulse Ox 99 06/08/24 07:00 FiO2 32 06/07/24 01:10 Intake & Output 06/07/24 06/08/24 06/08/24 18:59 06:59 18:59 Intake Total 118 480 360 Output Total 1200 120 Balance -1082 480 240 Weight 71.668 kg Intake: Oral 118 480 360 Output: Urine 1200 120 Other: Voiding Method Toilet Urinal # Voids 3 1 - Labs CBC & Chem 7: 06/08/24 07:12 06/08/24 07:12 Labs: Abnormal Lab Results - Last 24 Hours (Table) 06/08/24 06/08/24 Range/Units 07:12 07:12 RBC 2.79 L (4.40-5.60) X 10*6/uL Hgb 8.3 L (13.0-17.0) g/dL Hct 25.9 L (39.6-50.0) % MPV 9.3 L (9.5-12.2) FL Immature Gran # 0.07 H (0.00-0.04) X 10*3/uL Neutrophils # 8.34 H (1.80-7.70) X 10*3/uL Lymphocytes # 0.41 L (0.90-5.00) X 10*3/uL Monocytes # 0.16 L (0.20-1.00) X 10*3/uL Eosinophils # 0 L (0.04-0.35) X 10*3/uL Sodium 133 L (135-145) mmol/L Chloride 89 L (96-109) mmol/L Carbon Dioxide 34.0 H (21.6-31.8) mmol/L BUN/Creatinine Ratio 20.09 H (12.00-20.00) Ratio Glucose 167 H (70-110) mg/dL Total Bilirubin 0.2 L (0.3-1.2) mg/dL Albumin 3.5 L (3.8-4.9) g/dL Globulin 3.8 H (1.6-3.3) g/dL Albumin/Globulin Ratio 0.92 L (1.60-3.17) Ratio
--- NOTE | 2024-06-08 15:18 | P.PN ---
Subjective Progress Note Date: 06/08/24 Patient complaining of ongoing chest pain and significant shortness of breath, unable to have much mobility from the bed without feeling dyspneic. Pain is still substernal and has a sharp sensation to it. Gen: In moderate distress from pain and dyspnea, non-toxic HEENT: normocephalic, atraumatic, hearing acuity is intant, mucous membranes moist CVS: perfusing all extremities well, no pitting edema, Respiratory: symmetric chest expansion, no accessory muscle use, auscultation is very quiet, difficult to appreciate lung sounds due to poor air movement GI: soft, NTTP, ND, : no suprapubic tenderness, no CVA tenderness MSK/Derm: no rashes, cyanosis Neuro: CN II-XII intact, no motor weakness, Psych: cooperative, euthymic mood, judgment and insight is intact Hospital course: 73-year-old man with PMH of CAD with 1 stent placement, recently diagnosed A-fib (not maintained on Eliquis), COPD on 2-3 L NC at home 31/01. Presented to the emergency department after having severe chest pain that "feels like he is having a heart attack", endorsing severe pain in his back as well, with some associated shortness of breath. Imaging: -Chest x-ray done in the ER showed a right apical loculated pleural effusion, superimposed pneumothorax not excluded; follow-up CT recommended -Chest CTA showed atelectasis of the left lung base, along with a small collection of fluid concerning for pneumatocele; diverticulosis, without acute diverticulitis; no small bowel obstruction; no free intraperitoneal air. -CT abdomen/pelvis showed diverticulosis without acute diverticulitis. Otherwise unremarkable -EKG done in the ER showed atrial fibrillation heart rate of 76; QTc 528. Assessment and plan 73-year-old man with PMH of. Presents to the emergency department with severe chest pain that radiates to his back, along with some shortness of breath noted. Discussed with the ED patient medicine internal medicine service for further evaluation. # Pleuritic chest pain #s/p right-sided apical blebectomy in April #Recently diagnosed atrial fibrillation -Maintained at home on amiodarone 200 mg daily, - Metoprolol increased to 25 mg twice daily, - Norvasc 10 mg daily was discontinued -Continue with nitroglycerin as needed for pain -Initiate aspirin 81 mg daily -Continue home rosuvastatin 40 mg daily -Cardiac monitoring -Supplemental oxygen as needed -Heart healthy diet -Cardiology consulted -Echocardiogram ordered #COPD Exacerbation #Chronic Respiratory Failure maintained on 2-3 L nasal cannula home oxygen 31/01 -Currently maintained on nasal cannula -Monitor SpO2 -Titrate O2 as needed -IV steroids, ATC duonebs -Augmentin -Pulmonology consult #Leukocytosis, infection vs steroid -Initial WBC 12.7 -Continue to monitor CBC #History of pedal edema/fluid retention -Maintained at home on torsemide 20 mg daily #Acute normocytic anemia in the setting of chronic anemia -Initial hemoglobin 9.2, MCV 90.7 -Continue to monitor CBC -If hemoglobin <7, transfusion -Maintained at home with iron pills #Hyponatremia -Initial sodium 130 -Monitor BMP #Chronic hypokalemia -Initial potassium 2.7 -Received total of 40 mEq potassium bicarbonate in the emergency department -Potassium recheck pending -Continue to monitor BMP #Hypocalcemia -Initial calcium 8.1 -Continue to monitor BMP GI prohylaxis: Protonix 40 mg daily DVT prophylaxis: Lovenox 40 mg daily Dictation was produced using [employer] dictation software. please excuse any gra mmatical, word or spelling errors. Objective - Vital Signs Vital signs: Vital Signs Temp 97.7 F 06/08/24 07:00 Pulse 85 06/08/24 11:17 Resp 16 06/08/24 07:00 BP 115/70 06/08/24 07:00 Pulse Ox 99 06/08/24 07:00 FiO2 32 06/07/24 01:10 Intake & Output 06/07/24 06/08/24 06/08/24 18:59 06:59 18:59 Intake Total 118 480 360 Output Total 1200 120 Balance -1082 480 240 Weight 71.668 kg Intake: Oral 118 480 360 Output: Urine 1200 120 Other: Voiding Method Toilet Urinal # Voids 3 1 - Labs CBC & Chem 7: 06/08/24 07:12 06/08/24 07:12 Labs: Abnormal Lab Results - Last 24 Hours (Table) 06/08/24 06/08/24 Range/Units 07:12 07:12 RBC 2.79 L (4.40-5.60) X 10*6/uL Hgb 8.3 L (13.0-17.0) g/dL Hct 25.9 L (39.6-50.0) % MPV 9.3 L (9.5-12.2) FL Immature Gran # 0.07 H (0.00-0.04) X 10*3/uL Neutrophils # 8.34 H (1.80-7.70) X 10*3/uL Lymphocytes # 0.41 L (0.90-5.00) X 10*3/uL Monocytes # 0.16 L (0.20-1.00) X 10*3/uL Eosinophils # 0 L (0.04-0.35) X 10*3/uL Sodium 133 L (135-145) mmol/L Chloride 89 L (96-109) mmol/L Carbon Dioxide 34.0 H (21.6-31.8) mmol/L BUN/Creatinine Ratio 20.09 H (12.00-20.00) Ratio Glucose 167 H (70-110) mg/dL Total Bilirubin 0.2 L (0.3-1.2) mg/dL Albumin 3.5 L (3.8-4.9) g/dL Globulin 3.8 H (1.6-3.3) g/dL Albumin/Globulin Ratio 0.92 L (1.60-3.17) Ratio
--- NOTE | 2024-06-08 18:52 | P.PN ---
Subjective Progress Note Date: 06/08/24 This is a 73-year-old male patient who presented to the hospital because of an acute chest pain has been going on for the past 24 to 48 hours. The patient's pain is located over the epigastric and left anterior chest area, somewhat pleuritic in nature worse with deep breathing. He describes his pain to be 10 out of 10 in severity and currently the pain is subsided and is probably in the order of 5 out of 10. He has chronic dyspnea as the patient is known to have advanced COPD and the patient has been oxygen dependent at 2 L/min nasal cannula on outpatient basis. The patient has previous history of endobronchial valve insertion which failed to improve his chronic exertional dyspnea. Based on that, the valve has been removed and the patient was subsequently referred to a surgical right upper lobe bullectomy and the surgery was done at [facility] on 04/11/2024. Postop, his course was complicated the patient reports to have had a cardiac arrest requiring CPR and there was also traumatic injury to his seventh rib and sternum during the process. Noted, is not producing much of sputum. He is bronchospastic and wheezy. No edema lower extremities. No hemoptysis. The viral screen was negative. Procalcitonin level was 0.2. Electrolytes show a sodium level of 130, potassium of 3.8, bicarb of 36, BUN is 20 with a catheter 1.1. WBC count is 18.3 with a hemoglobin 9.4 and a platelet count of 425. The EKG is showing a normal sinus rhythm, slightly tachycardia with a heart rate of 111 at time of admission with a first-degree AV block. No ST segment changes and the cardiac enzymes were negative. CT of the chest was done and showed no evidence of any pulmonary embolism. A large bolus was seen in the right upper lobe that was fluid-filled. No air-fluid level. No gas. No significant consolidation noted. The patient did have bullous emphysematous changes bilaterally. No masses identified. No cardiomegaly. CAT scan of the abdomen also showed evidence of diverticulosis without diverticulitis. On 06/08/2024, the patient is being seen for a follow-up. Still having some pleuritic right-sided chest pain although this is improved compared to yesterday. The pain is around 5 out of 10 in severity. Currently on Augmentin. Currently on IV Solu-Medrol. He did have a episode of delirium earlier this morning and currently his mental status is normal. Hemoglobin is 8.3. White cell count is at 8.9. BUN is 22 creatinine 1.1 and a sodium levels at 133. S till bronchospastic and wheezy. Afebrile. Pulse ox 97% 40 Suboxone by nasal cannula. Objective - Vital Signs Vital signs: Vital Signs Temp 97.7 F 06/08/24 07:00 Pulse 85 06/08/24 11:17 Resp 16 06/08/24 07:00 BP 115/70 06/08/24 07:00 Pulse Ox 99 06/08/24 07:00 FiO2 32 06/07/24 01:10 Intake & Output 06/07/24 06/08/24 06/08/24 18:59 06:59 18:59 Intake Total 118 480 360 Output Total 1200 120 Balance -1082 480 240 Weight 71.668 kg Intake: Oral 118 480 360 Output: Urine 1200 120 Other: Voiding Method Toilet Urinal # Voids 3 - Exam The patient appeared well nourished and normally developed. Vital signs as do cumented. Head exam is unremarkable. No scleral icterus or corneal arcus noted. Neck is without jugular venous distension, thyromegaly, or carotid bruits. Carotid upstrokes are brisk bilaterally. Lungs examination shows marked diminished breath sounds bilaterally along with prolongation of the exhalation phase of breathing and diffuse expiratory wheezes throughout the lung field bilaterally. Cardiac exam reveals the PMI to be normally sized and situated. Rhythm is regular. First and second heart sounds normal. No murmurs, rubs or gallops. Abdominal exam reveals normal bowel sounds, no masses, no organomegaly and no aortic enlargement. Extremities are nonedematous and both femoral and pedal pulses are normal. Examination of the skin revealed no evidence of significant rashes, suspicious appearing nevi or other concerning lesions. Neurologically, the patient is awake and alert and the patient does not have any focal neurological deficit. Cranial nerves are essentially intact. - Labs CBC & Chem 7: 06/08/24 07:12 06/08/24 07:12 Labs: Abnormal Lab Results - Last 24 Hours (Table) 06/08/24 06/08/24 Range/Units 07:12 07:12 RBC 2.79 L (4.40-5.60) X 10*6/uL Hgb 8.3 L (13.0-17.0) g/dL Hct 25.9 L (39.6-50.0) % MPV 9.3 L (9.5-12.2) FL Immature Gran # 0.07 H (0.00-0.04) X 10*3/uL Neutrophils # 8.34 H (1.80-7.70) X 10*3/uL Lymphocytes # 0.41 L (0.90-5.00) X 10*3/uL Monocytes # 0.16 L (0.20-1.00) X 10*3/uL Eosinophils # 0 L (0.04-0.35) X 10*3/uL Sodium 133 L (135-145) mmol/L Chloride 89 L (96-109) mmol/L Carbon Dioxide 34.0 H (21.6-31.8) mmol/L BUN/Creatinine Ratio 20.09 H (12.00-20.00) Ratio Glucose 167 H (70-110) mg/dL Total Bilirubin 0.2 L (0.3-1.2) mg/dL Albumin 3.5 L (3.8-4.9) g/dL Globulin 3.8 H (1.6-3.3) g/dL Albumin/Globulin Ratio 0.92 L (1.60-3.17) Ratio Assessment and Plan Plan: Acute pleuritic chest pain, obviously the pain is noncardiac in nature. No evidence of any pulm embolism. No clear indication for pneumonia based on the CAT scan of the chest. Reviewed the CT of the chest and the patient has postsurgical changes with right upper bullectomy and there is some fluid collection in the right upper lobe which could be residual from his recent surgery. The fluid is somewhat loculated. No air-fluid levels. No gas. Procalcitonin level is low. No significant sputum production. Mild leukocytosis. Infection is felt to be less likely although it cannot be completely excluded Advanced COPD with chronic hypoxic respiratory failure currently on 2 L of oxygen by nasal cannula Previous history of Hope valve insertion and subsequent removal for COPD management and treatment of chronic exertional dyspnea Right upper bullectomy done on 04/11/2024 at [facility] Bullous emphysematous changes bilaterally with some residual bullae scattered throughout the lung enriquez bilaterally Loculated fluid right upper lobe as discussed above, likely postsurgical. Infected bolus cannot be completely excluded Mild leukocytosis History of cardiopulmonary arrest occurred following a surgical right upper bullectomy. The details of this event is not known. This was a postsurgical rest and the patient apparently received CPR. Diverticulosis Chronic atrial fibrillation maintained on anticoagulation with Eliquis Hyperlipidemia Plan Pleuritic chest pain is improving Continue same treatment Oxygenation is stable, creatinine 4 L Monitor white cell count Empiric antibiotic coverage with oral Augmentin IV Solu-Medrol 60 mg every 6 hours optimize COPD and treat nonspecific symptoms of pleurisy Continue bronchodilators with DuoNeb [facility] [place] for pain control 7.5 mg every 6 hours on a as needed basis Resume home medications Watch for any signs of delirium Echocardiogram Cardiology consultation Will follow
[2024-06-09 05:25] LABS: African American GFR (CKD) 73 (>60 ml/min/1.73 sqM); Anion Gap 5 mmol/L; Blood Urea Nitrogen 35 mg/dL (9-20); Calcium 8.9 mg/dL (8.4-10.2); Carbon Dioxide 33 mmol/L (22-30); Chloride 94 mmol/L (98-107); Glucose 193 mg/dL (74-99); Non-African American GFR(CKD) 63 (>60 ml/min/1.73 sqM); Potassium 4.2 mmol/L (3.5-5.1); Sodium 132 mmol/L (137-145)
[2024-06-09] MEDS: AMIODARONE 200 MG TAB PO SCH (08:44)
--- NOTE | 2024-06-09 15:03 | P.PN ---
Subjective Progress Note Date: 06/09/24 PROGRESS NOTE The patient is a 73-year-old male with known history of CAD, atrial flutter and severe pulmonary disease status post right upper lobe bullectomy done at [facility] recently. He presented with respirophasic chest pain and worsening dyspnea. He is feeling better this morning, his breathing is better. He has no significant pain at this time. He denies any dizziness or palpitation s. He denies any nausea. He was evaluated by the pulmonary service yesterday and was started on steroids. June 09: The patient feels better today, his breathing is better. He continues to have wheezing. The chest wall tenderness is improving. He denies any dizziness or palpitations. He continues to be in atrial flutter with controlled ventricular response. He has peripheral edema. He denies any nausea or vomiting. Medications: Amiodarone 200 mg daily, Eliquis 5 mg twice a day, Lipitor 40 mg daily, methylprednisolone, metoprolol tartrate 25 mg twice a day, Demadex 20 mg daily, Protonix PHYSICAL EXAMINATION: Blood pressure 106/60 heart rate 85 LUNGS: Mild wheezing HEART: Irregular rate and rhythm, S1, S2. No S3. Systolic ejection murmur ABDOMEN: Soft, nontender, no organomegaly EXTREMETIES: +1 edema LAB: potassium 4.2, BUN 35, creatinine 1.15 IMPRESSION: 1. Musculoskeletal chest discomfort, improving 2. Severe COPD status post right sided apical bullectomy done in April at [facility] 3. Chronic persistent flutter, anticoagulated 4. History of CAD status post PCI, done in [place] PLAN: 1. IV Lasix x 1 2. Continue other treatment 3. Follow renal functions 4. Depending on his progress further recommendations will be made Objective - Vital Signs Vital signs: Vital Signs Temp 98.4 F 06/09/24 14:06 Pulse 85 06/09/24 14:06 Resp 17 06/09/24 14:06 BP 106/60 06/09/24 14:06 Pulse Ox 98 06/09/24 14:06 FiO2 32 06/07/24 01:10 Intake & Output 06/08/24 06/09/24 06/09/24 18:59 06:59 18:59 Intake Total 720 480 Output Total 120 Balance 600 480 Weight 71.668 kg Intake: Oral 720 480 Output: Urine 120 Other: Voiding Method Toilet Toilet Urinal Urinal # Voids 1 3 3 - Labs CBC & Chem 7: 06/08/24 07:12 06/09/24 04:30 Labs: Abnormal Lab Results - Last 24 Hours (Table) 06/09/24 Range/Units 04:30 Sodium 132 L (137-145) mmol/L Chloride 94 L (98-107) mmol/L Carbon Dioxide 33 H (22-30) mmol/L BUN 35 H (9-20) mg/dL Glucose 193 H (74-99) mg/dL
[2024-06-09] MEDS: FUROSEMIDE 10 MG/ML 4 ML VIAL IV STA (15:28)
--- NOTE | 2024-06-09 15:45 | P.PN ---
Subjective Progress Note Date: 06/09/24 Patient reports substernal pain and dyspnea are still present, but profile has improved. Gen: In mild distress from pain and dyspnea, non-toxic HEENT: normocephalic, atraumatic, hearing acuity is intant, mucous membranes moist CVS: perfusing all extremities well, no pitting edema, Respiratory: symmetric chest expansion, no accessory muscle use, auscultation is very quiet, difficult to appreciate lung sounds due to poor air movement GI: soft, NTTP, ND, : no suprapubic tenderness, no CVA tenderness MSK/Derm: no rashes, cyanosis Neuro: CN II-XII intact, no motor weakness, Psych: cooperative, euthymic mood, judgment and insight is intact Hospital course: 73-year-old man with PMH of CAD with 1 stent placement, recently diagnosed A-fib (not maintained on Eliquis), COPD on 2-3 L NC at home 31/01. Presented to the emergency department after having severe chest pain that "feels like he is hav ing a heart attack", endorsing severe pain in his back as well, with some associated shortness of breath. Imaging: -Chest x-ray done in the ER showed a right apical loculated pleural effusion, superimposed pneumothorax not excluded; follow-up CT recommended -Chest CTA showed atelectasis of the left lung base, along with a small collection of fluid concerning for pneumatocele; diverticulosis, without acute diverticulitis; no small bowel obstruction; no free intraperitoneal air. -CT abdomen/pelvis showed diverticulosis without acute diverticulitis. Otherwise unremarkable -EKG done in the ER showed atrial fibrillation heart rate of 76; QTc 528. Assessment and plan 73-year-old man with PMH of. Presents to the emergency department with severe chest pain that radiates to his back, along with some shortness of breath noted. Discussed with the ED patient medicine internal medicine service for further evaluation. # Pleuritic chest pain #s/p right-sided apical blebectomy in April #Recently diagnosed atrial fibrillation -Maintained at home on amiodarone 200 mg daily, - Metoprolol increased to 25 mg twice daily, - Norvasc 10 mg daily was discontinued -Continue with nitroglycerin as needed for pain -Initiate aspirin 81 mg daily -Continue home rosuvastatin 40 mg daily -Cardiac monitoring -Supplemental oxygen as needed -Heart healthy diet -Cardiology consulted -Echocardiogram ordered #COPD Exacerbation #Chronic Respiratory Failure maintained on 2-3 L nasal cannula home oxygen 31/01 -Currently maintained on nasal cannula -Monitor SpO2 -Titrate O2 as needed -IV steroids, ATC duonebs -Augmentin -Pulmonology consult #Leukocytosis, infection vs steroid -Initial WBC 12.7 -Continue to monitor CBC #History of pedal edema/fluid retention -Maintained at home on torsemide 20 mg daily #Acute normocytic anemia in the setting of chronic anemia -Initial hemoglobin 9.2, MCV 90.7 -Continue to monitor CBC -If hemoglobin <7, transfusion -Maintained at home with iron pills #Hyponatremia -Initial sodium 130 -Monitor BMP #Chronic hypokalemia -Initial potassium 2.7 -Received total of 40 mEq potassium bicarbonate in the emergency department -Potassium recheck pending -Continue to monitor BMP #Hypocalcemia -Initial calcium 8.1 -Continue to monitor BMP GI prohylaxis: Protonix 40 mg daily DVT prophylaxis: Lovenox 40 mg daily Dictation was produced using [employer] dictation software. please excuse any grammatical, word or spelling errors. Objective - Vital Signs Vital signs: Vital Signs Temp 98.4 F 06/09/24 14:06 Pulse 85 06/09/24 14:06 Resp 17 06/09/24 14:06 BP 106/60 06/09/24 14:06 Pulse Ox 98 06/09/24 14:06 FiO2 32 06/07/24 01:10 Intake & Output 06/08/24 06/09/24 06/09/24 18:59 06:59 18:59 Intake Total 720 480 Output Total 120 Balance 600 480 Weight 71.668 kg Intake: Oral 720 480 Output: Urine 120 Other: Voiding Method Toilet Toilet Urinal Urinal # Voids 1 3 3 - Labs CBC & Chem 7: 06/08/24 07:12 06/09/24 04:30 Labs: Abnormal Lab Results - Last 24 Hours (Table) 06/09/24 Range/Units 04:30 Sodium 132 L (137-145) mmol/L Chloride 94 L (98-107) mmol/L Carbon Dioxide 33 H (22-30) mmol/L BUN 35 H (9-20) mg/dL Glucose 193 H (74-99) mg/dL
--- NOTE | 2024-06-09 15:56 | P.PN ---
Subjective Progress Note Date: 06/09/24 This is a 73-year-old male patient who presented to the hospital because of an acute chest pain has been going on for the past 24 to 48 hours. The patient's pain is located over the epigastric and left anterior chest area, somewhat pleuritic in nature worse with deep breathing. He describes his pain to be 10 out of 10 in severity and currently the pain is subsided and is probably in the order of 5 out of 10. He has chronic dyspnea as the patient is known to have advanced COPD and the patient has been oxygen dependent at 2 L/min nasal cannula on outpatient basis. The patient has previous history of endobronchial valve insertion which failed to improve his chronic exertional dyspnea. Based on that, the valve has been removed and the patient was subsequently referred to a surgical right upper lobe bullectomy and the surgery was done at [facility] on 04/11/2024. Postop, his course was complicated the patient reports to have had a cardiac arrest requiring CPR and there was also traumatic injury to his seventh rib and sternum during the process. Noted, is not producing much of sputum. He is bronchospastic and wheezy. No edema lower extremities. No hemoptysis. The viral screen was negative. Procalcitonin level was 0.2. Electrolytes show a sodium level of 130, potassium of 3.8, bicarb of 36, BUN is 20 with a catheter 1.1. WBC count is 18.3 with a hemoglobin 9.4 and a platelet count of 425. The EKG is showing a normal sinus rhythm, slightly tachycardia with a heart rate of 111 at time of admission with a first-degree AV block. No ST segment changes and the cardiac enzymes were negative. CT of the chest was done and showed no evidence of any pulmonary embolism. A large bolus was seen in the right upper lobe that was fluid-filled. No air-fluid level. No gas. No significant consolidation noted. The patient did have bullous emphysematous changes bilaterally. No masses identified. No cardiomegaly. CAT scan of the abdomen also showed evidence of diverticulosis without diverticulitis. On 06/08/2024, the patient is being seen for a follow-up. Still having some pleuritic right-sided chest pain although this is improved compared to yesterday. The pain is around 5 out of 10 in severity. Currently on Augmentin. Currently on IV Solu-Medrol. He did have a episode of delirium earlier this morning and currently his mental status is normal. Hemoglobin is 8.3. White cell count is at 8.9. BUN is 22 creatinine 1.1 and a sodium levels at 133. S till bronchospastic and wheezy. Afebrile. Pulse ox 97% 4 liters by nasal cannula. 06/09/2024, the patient's pleuritic chest pain is essentially subsided. He is having episodes of confusion especially in the morning which recovers within an hour or so. This could be potentially a steroid effect. No new complaints. No interval worsening shortness of breath. Electrolytes are all stable and the creatinine is at 1.4 with a BUN of 35. Sodium levels at 132. He remains on oxygen at 4 L with a pulse ox of 98%. Afebrile. He is on anticoagulation with Eliquis. The pain in his right chest has become more intermittent. Objective - Vital Signs Vital signs: Vital Signs Temp 97.9 F 06/09/24 07:00 Pulse 86 06/09/24 12:53 Resp 17 06/09/24 07:00 BP 106/67 06/09/24 07:00 Pulse Ox 95 06/09/24 08:37 FiO2 32 06/07/24 01:10 Intake & Output 06/08/24 06/09/24 06/09/24 18:59 06:59 18:59 Intake Total 720 480 Output Total 120 Balance 600 480 Weight 71.668 kg Intake: Oral 720 480 Output: Urine 120 Other: Voiding Method Toilet Toilet Urinal Urinal # Voids 1 3 - Exam The patient appeared well nourished and normally developed. Vital signs as documented. Head exam is unremarkable. No scleral icterus or corneal arcus noted. Neck is without jugular venous distension, thyromegaly, or carotid bruits. Carotid upstrokes are brisk bilaterally. Lungs examination shows marked diminished breath sounds bilaterally along with prolongation of the exhalation phase of breathing and diffuse expiratory wheezes throughout the lung field bilaterally. Cardiac exam reveals the PMI to be normally sized and situated. Rhythm is regular. First and second heart sounds normal. No murmurs, rubs or gallops. Abdominal exam reveals normal bowel sounds, no masses, no organomegaly and no aortic enlargement. Extremities are nonedematous and both femoral and pedal pulses are normal. Examination of the skin revealed no evidence of significant rashes, suspicious appearing nevi or other concerning lesions. Neurologically, the patient is awake and alert and the patient does not have any focal neurological deficit. Cranial nerves are essentially intact. - Labs CBC & Chem 7: 06/08/24 07:12 06/09/24 04:30 Labs: Abnormal Lab Results - Last 24 Hours (Table) 06/09/24 Range/Units 04:30 Sodium 132 L (137-145) mmol/L Chloride 94 L (98-107) mmol/L Carbon Dioxide 33 H (22-30) mmol/L BUN 35 H (9-20) mg/dL Glucose 193 H (74-99) mg/dL Assessment and Plan Plan: Acute pleuritic chest pain, obviously the pain is noncardiac in nature. No evidence of any pulm embolism. No clear indication for pneumonia based on the CAT scan of the chest. Reviewed the CT of the chest and the patient has postsurgical changes with right upper bullectomy and there is some fluid collection in the right upper lobe which could be residual from his recent surgery. The fluid is somewhat loculated. No air-fluid levels. No gas. Procalcitonin level is low. No significant sputum production. Mild le ukocytosis. Infection is felt to be less likely although it cannot be completely excluded Advanced COPD with chronic hypoxic respiratory failure currently on 2 L of oxygen by nasal cannula Previous history of [place] valve insertion and subsequent removal for COPD management and treatment of chronic exertional dyspnea Right upper bullectomy done on 04/11/2024 at [facility] Bullous emphysematous changes bilaterally with some residual bullae scattered throughout the lung enriquez bilaterally Loculated fluid right upper lobe as discussed above, likely postsurgical. Infected bolus cannot be completely excluded Mild leukocytosis History of cardiopulmonary arrest occurred following a surgical right upper bullectomy. The details of this event is not known. This was a postsurgical rest and the patient apparently received CPR. Diverticulosis Chronic atrial fibrillation maintained on anticoagulation with Eliquis Hyperlipidemia Plan Pleuritic chest pain is improving Continue same treatment Oxygenation is stable, creatinine 4 L Monitor white cell count Empiric antibiotic coverage with oral Augmentin Discontinue IV Solu-Medrol and put the patient on prednisone 10 mg p.o. daily [facility] control 7.5 mg every 6 hours on a as needed basis Resume home medications Watch for any signs of delirium Will follow
[2024-06-09 16:12] LABS: HCT 25.8 % (39.0-53.0); Hypochromasia Marked; MCHC 31.1 g/dL (31.0-37.0); Mean Platelet Volume 8.1; Platelet Count 367 k/uL (150-450); RBC 2.67 m/uL (4.30-5.90); RDW 14.2 % (11.5-15.5); WBC 14.4 k/uL (3.8-10.6)
[2024-06-09 16:16] LABS: MCV 96.4 fL (80.0-100.0)
[2024-06-09] MEDS: predniSONE 10 MG TAB PO SCH (17:50)
[2024-06-10 06:19] LABS: African American GFR (CKD) 83 (>60 ml/min/1.73 sqM); Anion Gap 3 mmol/L; Blood Urea Nitrogen 36 mg/dL (9-20); Calcium 8.6 mg/dL (8.4-10.2); Carbon Dioxide 36 mmol/L (22-30); Chloride 94 mmol/L (98-107); Glucose 180 mg/dL (74-99); Non-African American GFR(CKD) 72 (>60 ml/min/1.73 sqM); Potassium 3.5 mmol/L (3.5-5.1); Sodium 133 mmol/L (137-145)
--- NOTE | 2024-06-10 12:21 | P.PN ---
Subjective Progress Note Date: 06/10/24 PROGRESS NOTE The patient is a 73-year-old male with known history of CAD, atrial flutter and severe pulmonary disease status post right upper lobe bullectomy done at [facility] recently. He presented with respirophasic chest pain and worsening dyspnea. He is feeling better this morning, his breathing is better. He has no significant pain at this time. He denies any dizziness or palpitation s. He denies any nausea. He was evaluated by the pulmonary service yesterday and was started on steroids. June 09: The patient feels better today, his breathing is better. He continues to have wheezing. The chest wall tenderness is improving. He denies any dizziness or palpitations. He continues to be in atrial flutter with controlled ventricular response. He has peripheral edema. He denies any nausea or vomiting. June 10 The patient continues to have significant dyspnea on exertion, he denies any dizziness or palpitations. He continues to have some chest discomfort, respirophasic but improving. He denies any nausea or vomiting. He has peripheral edema. He continues to be in atrial flutter. Medications: Amiodarone 200 mg daily, Eliquis 5 mg twice a day, Lipitor 40 mg daily, methylprednisolone, metoprolol tartrate 25 mg twice a day, Demadex 20 mg daily, Protonix PHYSICAL EXAMINATION: Blood pressure 110/60 heart rate 104 LUNGS: Mild wheezing HEART: Irregular rate and rhythm, S1, S2. No S3. Systolic ejection murmur ABDOMEN: Soft, nontender, no organomegaly EXTREMETIES: +1 edema LAB: potassium 3.5, BUN 36, creatinine 1.03 IMPRESSION: 1. Musculoskeletal chest discomfort, improving 2. Severe COPD status post right sided apical bullectomy done in April at [facility] 3. Chronic persistent flutter, anticoagulated 4. History of CAD status post PCI, done in [place] 5. Peripheral edema PLAN: 1. Additional IV diuretics today and increase oral diuretics 2. Continue other treatment 3. Follow renal functions 4. Depending on his progress further recommendations will be made Objective - Vital Signs Vital signs: Vital Signs Temp 97.5 F L 06/10/24 07:00 Pulse 104 H 06/10/24 09:38 Resp 18 06/10/24 09:38 BP 110/65 06/10/24 07:00 Pulse Ox 97 06/10/24 09:26 FiO2 32 06/07/24 01:10 Intake & Output 06/09/24 06/10/24 06/10/24 18:59 06:59 18:59 Intake Total 354 Balance 354 Intake: Oral 354 Other: Voiding Method Toilet Toilet Toilet Urinal Urinal Urinal # Voids 3 1 - Labs CBC & Chem 7: 06/09/24 04:30 06/10/24 05:37 Labs: Abnormal Lab Results - Last 24 Hours (Table) 06/09/24 06/10/24 Range/Units 04:30 05:37 WBC 14.4 H (3.8-10.6) k/uL RBC 2.67 L (4.30-5.90) m/uL Hgb 8.0 L (13.0-17.5) gm/dL Hct 25.8 L (39.0-53.0) % Sodium 133 L (137-145) mmol/L Chloride 94 L (98-107) mmol/L Carbon Dioxide 36 H (22-30) mmol/L BUN 36 H (9-20) mg/dL Glucose 180 H (74-99) mg/dL
--- NOTE | 2024-06-10 12:46 | P.PN ---
Subjective Progress Note Date: 06/10/24 Patient reports substernal pain and dyspnea are still present, but profile has improved. Gen: In mild distress from pain and dyspnea, non-toxic HEENT: normocephalic, atraumatic, hearing acuity is intant, mucous membranes moist CVS: perfusing all extremities well, no pitting edema, Respiratory: symmetric chest expansion, no accessory muscle use, auscultation is very quiet, difficult to appreciate lung sounds due to poor air movement GI: soft, NTTP, ND, : no suprapubic tenderness, no CVA tenderness MSK/Derm: no rashes, cyanosis Neuro: CN II-XII intact, no motor weakness, Psych: cooperative, euthymic mood, judgment and insight is intact Hospital course: 73-year-old man with PMH of CAD with 1 stent placement, recently diagnosed A-fib (not maintained on Eliquis), COPD on 2-3 L NC at home 31/01. Presented to the emergency department after having severe chest pain that "feels like he is hav ing a heart attack", endorsing severe pain in his back as well, with some associated shortness of breath. Imaging: -Chest x-ray done in the ER showed a right apical loculated pleural effusion, superimposed pneumothorax not excluded; follow-up CT recommended -Chest CTA showed atelectasis of the left lung base, along with a small collection of fluid concerning for pneumatocele; diverticulosis, without acute diverticulitis; no small bowel obstruction; no free intraperitoneal air. -CT abdomen/pelvis showed diverticulosis without acute diverticulitis. Otherwise unremarkable -EKG done in the ER showed atrial fibrillation heart rate of 76; QTc 528. Assessment and plan 73-year-old man with PMH of. Presents to the emergency department with severe chest pain that radiates to his back, along with some shortness of breath noted. Discussed with the ED patient medicine internal medicine service for further evaluation. # Pleuritic chest pain #s/p right-sided apical blebectomy in April #Recently diagnosed atrial fibrillation -Maintained at home on amiodarone 200 mg daily, - Metoprolol increased to 25 mg twice daily, - Norvasc 10 mg daily was discontinued -Continue with nitroglycerin as needed for pain -Initiate aspirin 81 mg daily -Continue home rosuvastatin 40 mg daily -Cardiac monitoring -Supplemental oxygen as needed -Heart healthy diet -Cardiology consulted -Echocardiogram ordered #COPD Exacerbation #Chronic Respiratory Failure maintained on 2-3 L nasal cannula home oxygen 31/01 -Currently maintained on nasal cannula -Monitor SpO2 -Titrate O2 as needed -IV steroids, ATC duonebs -Augmentin -Pulmonology consult #Leukocytosis, infection vs steroid -Initial WBC 12.7 -Continue to monitor CBC #History of pedal edema/fluid retention -Maintained at home on torsemide 20 mg daily #Acute normocytic anemia in the setting of chronic anemia -Initial hemoglobin 9.2, MCV 90.7 -Continue to monitor CBC -If hemoglobin <7, transfusion -Maintained at home with iron pills #Hyponatremia -Initial sodium 130 -Monitor BMP #Chronic hypokalemia -Initial potassium 2.7 -Received total of 40 mEq potassium bicarbonate in the emergency department -Potassium recheck pending -Continue to monitor BMP #Hypocalcemia -Initial calcium 8.1 -Continue to monitor BMP GI prohylaxis: Protonix 40 mg daily DVT prophylaxis: Lovenox 40 mg daily Dictation was produced using [employer] dictation software. please excuse any grammatical, word or spelling errors. Objective - Vital Signs Vital signs: Vital Signs Temp 97.5 F L 06/10/24 07:00 Pulse 103 H 06/10/24 12:45 Resp 18 06/10/24 12:45 BP 110/65 06/10/24 07:00 Pulse Ox 97 06/10/24 09:26 FiO2 32 06/07/24 01:10 Intake & Output 06/09/24 06/10/24 06/10/24 18:59 06:59 18:59 Intake Total 354 Balance 354 Intake: Oral 354 Other: Voiding Method Toilet Toilet Toilet Urinal Urinal Urinal # Voids 3 1 - Labs CBC & Chem 7: 06/09/24 04:30 06/10/24 05:37 Labs: Abnormal Lab Results - Last 24 Hours (Table) 06/09/24 06/10/24 Range/Units 04:30 05:37 WBC 14.4 H (3.8-10.6) k/uL RBC 2.67 L (4.30-5.90) m/uL Hgb 8.0 L (13.0-17.5) gm/dL Hct 25.8 L (39.0-53.0) % Sodium 133 L (137-145) mmol/L Chloride 94 L (98-107) mmol/L Carbon Dioxide 36 H (22-30) mmol/L BUN 36 H (9-20) mg/dL Glucose 180 H (74-99) mg/dL
[2024-06-10] MEDS: FUROSEMIDE 10 MG/ML 4 ML VIAL IV STA (15:16)
[2024-06-10] MEDS: SPIRONOLACTONE 25 MG TAB PO SCH (15:17)
--- NOTE | 2024-06-10 19:35 | P.PN ---
Subjective Progress Note Date: 06/10/24 This is a 73-year-old male patient who presented to the hospital because of an acute chest pain has been going on for the past 24 to 48 hours. The patient's pain is located over the epigastric and left anterior chest area, somewhat pleuritic in nature worse with deep breathing. He describes his pain to be 10 out of 10 in severity and currently the pain is subsided and is probably in the order of 5 out of 10. He has chronic dyspnea as the patient is known to have advanced COPD and the patient has been oxygen dependent at 2 L/min nasal cannula on outpatient basis. The patient has previous history of endobronchial valve insertion which failed to improve his chronic exertional dyspnea. Based on that, the valve has been removed and the patient was subsequently referred to a surgical right upper lobe bullectomy and the surgery was done at [facility] on 04/11/2024. Postop, his course was complicated the patient reports to have had a cardiac arrest requiring CPR and there was also traumatic injury to his seventh rib and sternum during the process. Noted, is not producing much of sputum. He is bronchospastic and wheezy. No edema lower extremities. No hemoptysis. The viral screen was negative. Procalcitonin level was 0.2. Electrolytes show a sodium level of 130, potassium of 3.8, bicarb of 36, BUN is 20 with a catheter 1.1. WBC count is 18.3 with a hemoglobin 9.4 and a platelet count of 425. The EKG is showing a normal sinus rhythm, slightly tachycardia with a heart rate of 111 at time of admission with a first-degree AV block. No ST segment changes and the cardiac enzymes were negative. CT of the chest was done and showed no evidence of any pulmonary embolism. A large bolus was seen in the right upper lobe that was fluid-filled. No air-fluid level. No gas. No significant consolidation noted. The patient did have bullous emphysematous changes bilaterally. No masses identified. No cardiomegaly. CAT scan of the abdomen also showed evidence of diverticulosis without diverticulitis. On 06/08/2024, the patient is being seen for a follow-up. Still having some pleuritic right-sided chest pain although this is improved compared to yesterday. The pain is around 5 out of 10 in severity. Currently on Augmentin. Currently on IV Solu-Medrol. He did have a episode of delirium earlier this morning and currently his mental status is normal. Hemoglobin is 8.3. White cell count is at 8.9. BUN is 22 creatinine 1.1 and a sodium levels at 133. S till bronchospastic and wheezy. Afebrile. Pulse ox 97% 4 liters by nasal cannula. 06/09/2024, the patient's pleuritic chest pain is essentially subsided. He is having episodes of confusion especially in the morning which recovers within an hour or so. This could be potentially a steroid effect. No new complaints. No interval worsening shortness of breath. Electrolytes are all stable and the creatinine is at 1.4 with a BUN of 35. Sodium levels at 132. He remains on oxygen at 4 L with a pulse ox of 98%. Afebrile. He is on anticoagulation with Eliquis. The pain in his right chest has become more intermittent. On 06/10/2024, the patient is being seen for a follow-up the patient continues to have pain along the chest somewhat pleuritic in times is throbbing in nature. The patient remains on Augmentin. He was taken off the IV Solu-Medrol and given low-dose prednisone at a dose of 10 mg p.o. daily. No fever. No chills. No other new complaints otherwise for now. Remains on Demadex. Rest of medication unchanged Objective - Vital Signs Vital signs: Vital Signs Temp 97.5 F L 06/10/24 07:00 Pulse 104 H 06/10/24 09:38 Resp 18 06/10/24 09:38 BP 110/65 06/10/24 07:00 Pulse Ox 97 06/10/24 09:26 FiO2 32 06/07/24 01:10 Intake & Output 06/09/24 06/10/24 06/10/24 18:59 06:59 18:59 Intake Total 354 Balance 354 Intake: Oral 354 Other: Voiding Method Toilet Toilet Toilet Urinal Urinal Urinal # Voids 3 1 - Exam The patient appeared well nourished and normally developed. Vital signs as documented. Head exam is unremarkable. No scleral icterus or corneal arcus noted. Neck is without jugular venous distension, thyromegaly, or carotid bruits. Carotid upstrokes are brisk bilaterally. Lungs examination shows marked diminished breath sounds bilaterally along with prolongation of the exhalation phase of breathing and diffuse expiratory wheezes throughout the lung field bilaterally. Cardiac exam reveals the PMI to be normally sized and situated. Rhythm is regular. First and second heart sounds normal. No murmurs, rubs or gallops. Abdominal exam reveals normal bowel sounds, no masses, no organomegaly and no aortic enlargement. Extremities are nonedematous and both femoral and pedal pulses are normal. Examination of the skin revealed no evidence of significant rashes, suspicious appearing nevi or other concerning lesions. Neurologically, the patient is awake and alert and the patient does not have any focal neurological deficit. Cranial nerves are essentially intact. - Labs CBC & Chem 7: 06/09/24 04:30 06/10/24 05:37 Labs: Abnormal Lab Results - Last 24 Hours (Table) 06/09/24 06/10/24 Range/Units 04:30 05:37 WBC 14.4 H (3.8-10.6) k/uL RBC 2.67 L (4.30-5.90) m/uL Hgb 8.0 L (13.0-17.5) gm/dL Hct 25.8 L (39.0-53.0) % Sodium 133 L (137-145) mmol/L Chloride 94 L (98-107) mmol/L Carbon Dioxide 36 H (22-30) mmol/L BUN 36 H (9-20) mg/dL Glucose 180 H (74-99) mg/dL Assessment and Plan Plan: Acute pleuritic chest pain, obviously the pain is noncardiac in nature. No evidence of any pulm embolism. No clear indication for pneumonia based on the CAT scan of the chest. Reviewed the CT of the chest and the patient has postsurgical changes with right upper bullectomy and there is some fluid collection in the right upper lobe which could be residual from his recent surgery. The fluid is somewhat loculated. No air-fluid levels. No gas. Procalcitonin level is low. No significant sputum production. Mild leuk ocytosis. Infection is felt to be less likely although it cannot be completely excluded Advanced COPD with chronic hypoxic respiratory failure currently on 2 L of oxygen by nasal cannula Previous history of [place] valve insertion and subsequent removal for COPD management and treatment of chronic exertional dyspnea Right upper bullectomy done on 04/11/2024 at [facility] Bullous emphysematous changes bilaterally with some residual bullae scattered throughout the lung enriquez bilaterally Loculated fluid right upper lobe as discussed above, likely postsurgical. Infected bolus cannot be completely excluded Mild leukocytosis History of cardiopulmonary arrest occurred following a surgical right upper bullectomy. The details of this event is not known. This was a postsurgical re st and the patient apparently received CPR. Diverticulosis Chronic atrial fibrillation maintained on anticoagulation with Eliquis Hyperlipidemia Plan Pleuritic chest pain is improving and not completely subsided Continue same treatment Oxygenation is stable, creatinine 4 L Monitor white cell count Empiric antibiotic coverage with oral Augmentin Continue prednisone 10 mg p.o. daily Continue bronchodilators with DuoNeb [facility] for pain control 7.5 mg every 6 hours on a as needed basis Resume home medications Watch for any signs of delirium Repeat CXR in am (PA and lateral) Will follow
[2024-06-11 02:34] VITALS: RESP 17
[2024-06-11 05:41] LABS: African American GFR (CKD) 80 (>60 ml/min/1.73 sqM); Blood Urea Nitrogen 34 mg/dL (9-20); Calcium 8.5 mg/dL (8.4-10.2); Chloride 94 mmol/L (98-107); Glucose 143 mg/dL (74-99); Non-African American GFR(CKD) 69 (>60 ml/min/1.73 sqM); Potassium 3.3 mmol/L (3.5-5.1); Sodium 134 mmol/L (137-145)
[2024-06-11 05:47] LABS: Anion Gap 3 mmol/L; Carbon Dioxide 37 mmol/L (22-30)
[2024-06-11 07:13] VITALS: BP 132/71; TEMP 97.6
--- NOTE | 2024-06-11 08:30 | XR ---
EXAMINATION TYPE: XR chest 2V DATE OF EXAM: 06/11/2024 7:05 AM COMPARISON: Chest radiographs from 06/06/2024 CLINICAL INDICATION: Male, 73 years old with history of [place] emphysema; TECHNIQUE: XR chest 2V Frontal and lateral views of the chest. FINDINGS: Lungs/Pleura: Prominent interstitial lung markings are seen scattered throughout the lungs. No eviden ce of focal consolidation, pneumothorax or pleural effusion. Pulmonary vascularity: Unremarkable. Heart/mediastinum: Cardiomediastinal silhouette is unremarkable. Musculoskeletal: No acute osseous pathology. IMPRESSION: 1. Trace right apical pneumothorax with bulla and blebs. 2. COPD. [facility], , 06/11/2024 8:28 AM
--- NOTE | 2024-06-11 10:29 | P.PN ---
Subjective PROGRESS NOTE The patient is a 73-year-old male with known history of CAD, atrial flutter and severe pulmonary disease status post right upper lobe bullectomy done at [facility] recently. He presented with respirophasic chest pain and wor sening dyspnea. He is feeling better this morning, his breathing is better. He has no significant pain at this time. He denies any dizziness or palpitations. He denies any nausea. He was evaluated by the pulmonary service yesterday and was started on steroids. June 09: The patient feels better today, his breathing is better. He continues to have wheezing. The chest wall tenderness is improving. He denies any dizziness or palpitations. He continues to be in atrial flutter with controlled ventricular response. He has peripheral edema. He denies any nausea or vomiting. June 10 The patient continues to have significant dyspnea on exertion, he denies any dizziness or palpitations. He continues to have some chest discomfort, respirophasic but improving. He denies any nausea or vomiting. He has peripheral edema. He continues to be in atrial flutter. 06/11 Patient seen and examined. Patient still having 3-4 pleuritic-type chest pain similar to before. He believes his swelling has been coming down with the oral torsemide. He states he has never had significant lower extremity edema before however it has significantly improved with the diuretics. Creatinine stable 1 .0. He is anxious to go home. Normally on 2 L home oxygen currently on 4 L. Medications: Amiodarone 200 mg daily, Eliquis 5 mg twice a day, Lipitor 40 mg daily, methylprednisolone, metoprolol tartrate 25 mg twice a day, Demadex 20 mg daily, Protonix PHYSICAL EXAMINATION: Blood pressure 110/60 heart rate 104 LUNGS: Mild wheezing HEART: Irregular rate and rhythm, S1, S2. No S3. Systolic ejection murmur ABDOMEN: Soft, nontender, no organomegaly EXTREMETIES: +1 edema IMPRESSION: 1. Musculoskeletal chest discomfort, improving 2. Severe COPD status post right sided apical bullectomy done in April at [facility] 3. Chronic persistent flutter, anticoagulated 4. History of CAD status post PCI, done in [place] 5. Peripheral edema 6. Acute on chronic diastolic heart failure PLAN: Patient with atypical chest pain and appears to be improving. He does have significant lower extremity edema and therefore continue with diuretics however appears be improving with oral torsemide. If not considering rhythm control may consider discontinuation of amiodarone outpatient. Continue with anticoagulation. Patient appears to be stable from a cardiac standpoint for discharge home with outpatient follow-up in 1 week. Objective - Vital Signs Vital signs: Vital Signs Temp 97.6 F 06/11/24 07:00 Pulse 94 06/11/24 09:14 Resp 17 06/11/24 07:00 BP 132/71 06/11/24 07:00 Pulse Ox 96 06/11/24 09:04 FiO2 32 06/07/24 01:10 Intake & Output 06/10/24 06/11/24 06/11/24 18:59 06:59 18:59 Intake Total 472 Output Total 1000 Balance -528 Weight 71.668 kg Intake: Oral 472 Output: Stool 1000 Other: Voiding Method Toilet Urinal # Voids 2 - Labs CBC & Chem 7: 06/09/24 04:30 06/11/24 04:47 Labs: Abnormal Lab Results - Last 24 Hours (Table) 06/11/24 Range/Units 04:47 Sodium 134 L (137-145) mmol/L Potassium 3.3 L (3.5-5.1) mmol/L Chloride 94 L (98-107) mmol/L Carbon Dioxide 37 H (22-30) mmol/L BUN 34 H (9-20) mg/dL Glucose 143 H (74-99) mg/dL
[2024-06-11 12:34] VITALS: PULSE 86
[2024-06-11] MEDS ORDERED: Potassium Replacement Protocol 1 EACH MISC MISCELLANE PRN (13:53)
--- NOTE | 2024-06-11 14:09 | P.PN ---
Subjective Progress Note Date: 06/11/24 This is a 73-year-old male patient who presented to the hospital because of an acute chest pain has been going on for the past 24 to 48 hours. The patient's pain is located over the epigastric and left anterior chest area, somewhat pleuritic in nature worse with deep breathing. He describes his pain to be 10 out of 10 in severity and currently the pain is subsided and is probably in the order of 5 out of 10. He has chronic dyspnea as the patient is known to have advanced COPD and the patient has been oxygen dependent at 2 L/min nasal cannula on outpatient basis. The patient has previous history of endobronchial valve insertion which failed to improve his chronic exertional dyspnea. Based on t hat, the valve has been removed and the patient was subsequently referred to a surgical right upper lobe bullectomy and the surgery was done at [facility] on 04/11/2024. Postop, his course was complicated the patient reports to have had a cardiac arrest requiring CPR and there was also traumatic injury to his seventh rib and sternum during the process. Noted, is not producing much of sputum. He is bronchospastic and wheezy. No edema lower extremities. No hemoptysis. The viral screen was negative. Procalcitonin level was 0.2. Electrolytes show a sodium level of 130, potassium of 3.8, bicarb of 36, BUN is 20 with a catheter 1.1. WBC count is 18.3 with a hemoglobin 9.4 and a platelet count of 425. The EKG is showing a normal sinus rhythm, slightly tachycardia with a heart rate of 111 at time of admission with a first-degree AV block. No ST segment changes and the cardiac enzymes were negative. CT of the chest was done and showed no evidence of any pulmonary embolism. A large bolus was seen in the right upper lobe that was fluid-filled. No air-fluid level. No gas. No significant consolidation noted. The patient did have bullous emphysematous changes bilaterally. No masses identified. No cardiomegaly. CAT scan of the abdomen also showed evidence of diverticulosis without diverticulitis. On 06/08/2024, the patient is being seen for a follow-up. Still having some pleuritic right-sided chest pain although this is improved compared to yesterday. The pain is around 5 out of 10 in severity. Currently on Augmentin. Currently on IV Solu-Medrol. He did have a episode of delirium earlier this morning and currently his mental status is normal. Hemoglobin is 8.3. White cell count is at 8.9. BUN is 22 creatinine 1.1 and a sodium levels at 133. Still bronchospastic and wheezy. Afebrile. Pulse ox 97% 4 liters by nasal cannula. 06/09/2024, the patient's pleuritic chest pain is essentially subsided. He is having episodes of confusion especially in the morning which recovers within an hour or so. This could be potentially a steroid effect. No new complaints. No interval worsening shortness of breath. Electrolytes are all stable and the cre atinine is at 1.4 with a BUN of 35. Sodium levels at 132. He remains on oxygen at 4 L with a pulse ox of 98%. Afebrile. He is on anticoagulation with Eliquis. The pain in his right chest has become more intermittent. On 06/10/2024, the patient is being seen for a follow-up the patient continues to have pain along the chest somewhat pleuritic in times is throbbing in nature. The patient remains on Augmentin. He was taken off the IV Solu-Medrol and given low-dose prednisone at a dose of 10 mg p.o. daily. No fever. No chills. No other new complaints otherwise for now. Remains on Demadex. Rest of medication unchanged The patient is seen today June 11, 2024 in follow-up on the regular medical floor. He is currently up ambulating in his room. Awake and alert in no acute distress. Maintaining good O2 saturations in the 90s on 4 L/min per nasal cannula. He denies any current chest pain. No worsening shortness of breath. He does have a congested cough. Chest x-ray reveals a trace right apical pneumothorax with bulla and blebs. Evidence of COPD. Sodium 134. Potassium 3.3. Bicarb 37. BUN 34. Creatinine 1.06. Glucose 143. He is continued on DuoNeb inhalations, Pulmicort, prednisone, Augmentin. Anticoagulated with Eliquis. Objective - Vital Signs Vital signs: Vital Signs Temp 97.6 F 06/11/24 07:00 Pulse 86 06/11/24 12:33 Resp 17 06/11/24 07:00 BP 132/71 06/11/24 07:00 Pulse Ox 96 06/11/24 09:04 FiO2 32 06/07/24 01:10 Intake & Output 06/10/24 06/11/24 06/11/24 18:59 06:59 18:59 Intake Total 472 118 Output Total 1000 Balance -528 118 Weight 71.668 kg Intake: Oral 472 118 Output: Stool 1000 Other: Voiding Method Toilet Toilet Urinal # Voids 2 - Exam GENERAL EXAM: Alert, active, 73-year-old male, on 4 L nasal cannula, fairly comfortable in no apparent distress. HEAD: Normocephalic. EYES: Normal reaction of pupils, equal size. NOSE: Clear with pink turbinates. THROAT: No erythema or exudates. NECK: No masses, no JVD. CHEST: No chest wall deformity. LUNGS: Equal air entry with bilateral scattered rhonchi. CVS: S1 and S2 normal with no audible murmur, regular rhythm. ABDOMEN: No hepatosplenomegaly, normal bowel sounds, no guarding or rigidity. SPINE: No scoliosis or deformity SKIN: No rashes CENTRAL NERVOUS SYSTEM: No focal deficits, tone is normal in all 4 extremities. EXTREMITIES: There is no peripheral edema. No clubbing, no cyanosis. Peripheral pulses are intact. - Labs CBC & Chem 7: 06/09/24 04:30 06/11/24 04:47 Labs: Abnormal Lab Results - Last 24 Hours (Table) 06/11/24 Range/Units 04:47 Sodium 134 L (137-145) mmol/L Potassium 3.3 L (3.5-5.1) mmol/L Chloride 94 L (98-107) mmol/L Carbon Dioxide 37 H (22-30) mmol/L BUN 34 H (9-20) mg/dL Glucose 143 H (74-99) mg/dL Assessment and Plan Assessment: Acute pleuritic chest pain, obviously the pain is noncardiac in nature. No evidence of any pulm embolism. No clear indication for pneumonia based on the CAT scan of the chest. Reviewed the CT of the chest and the patient has postsurgical changes with right upper bullectomy and there is some fluid collection in the right upper lobe which could be residual from his recent surgery. The fluid is somewhat loculated. No air-fluid levels. No gas. Procalcitonin level is low. No significant sputum production. Mild leukocytosis. Infection is felt to be less likely although it cannot be completely excluded Advanced COPD with chronic hypoxic respiratory failure currently on 2 L of o xygen by nasal cannula Previous history of [place] valve insertion and subsequent removal for COPD m anagement and treatment of chronic exertional dyspnea Right upper bullectomy done on 04/11/2024 at [facility] Bullous emphysematous changes bilaterally with some residual bullae scattered th roughout the lung enriquez bilaterally Loculated fluid right upper lobe as discussed above, likely postsurgical. Infected bolus cannot be completely excluded Mild leukocytosis History of cardiopulmonary arrest occurred following a surgical right upper bullectomy. The details of this event is not known. This was a postsurgical rest and the patient apparently received CPR. Diverticulosis Chronic atrial fibrillation maintained on anticoagulation with Eliquis Hyperlipidemia Plan: The patient was seen and evaluated Chest x-ray, labs and medications reviewed Could be considered for discharge Continue on prednisone 10 mg daily Continue his home pulmonary medications Follow-up with Dr. Kelley in our office in 1 week Keep his scheduled appointments and follow-up at [facility] I have personally seen and examined the patient, performed the documentation and the assessment and plan as written. Number of minutes spent on the visit: 10 Dictation was produced using [employer] dictation software. Please excuse any grammatical, word or spelling errors.
--- NOTE | 2024-06-11 14:28 | P.DS ---
Providers Date of admission: 06/08/24 15:10 Attending physician: MD Marina Garnett Consults: 06/06/24 22:22 Consult Physician Routine Consulting Provider: Loi Allison Consult Reason/Comments: cp Do you want consulting provider notified?: Yes 06/07/24 01:37 Consult Physician Routine Consulting Provider: Tasia Shankar Consult Reason/Comments: COPD/SOB Do you want consulting provider notified?: Yes, Notify in am Primary care physician: [facility] Course: Discharge Diagnosis: Pleuritic chest pain Status post right-sided apical blebectomy 04/2024 Acute on chronic hypoxic respiratory failure on home oxygen secondary to COPD exacerbation Paroxysmal A-fib Bilateral lower extremity edema Acute on chronic normocytic anemia Chronic hypokalemia Hospital Course: A 73-year-old man with past medical history of CAD with PCI, 1 stent placed, recently diagnosed A-fib on Eliquis and amiodarone, COPD on 2 to 3 L of home oxygen 31/01, right-sided apical blebectomy 04/2024, chronic normocytic anemia, chronic hypokalemia who presented to the ED with severe chest pain that felt like heart attack. Patient was admitted for management of pleuritic chest pain in the settings of recent right-sided apical blebectomy. Chest pain is noncardiac in nature, no evidence of pulmonary embolism. He was maintained on supplemental oxygen, home amiodarone, metoprolol increased to 25 twice daily, Norvasc 10 mg was discontinued, patient was initiated on aspirin and continued on statins. 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 Of note, patient was noted to have bilateral lower extremity edema, was continued on diuretics with symptoms improvement. Cardiology was consulted, per cardiology, if not considering rhythm control may consider discontinuation of amiodarone outpatient, patient will follow-up with cardiology after discharge. Patient seen and examined at bedside.[] Vital signs reviewed and stable. General: [nontoxic], [no distress], [appears at stated age] Derm: [warm], [dry] Head: [atraumatic], [normocephalic], [symmetric] Eyes: [EOMI], [no lid lag], [anicteric sclera] Mouth: [no lip lesion], [mucus membranes moist] Cardiovascular: [S1S2 reg], [no murmur], bilateral lower extremity edema 2+ Lungs decreased breath sounds, predominantly upper lobes wheezing Abdominal: [soft], [ nontender to palpation], [no guarding], [no appreciable organomegaly] Ext: [no gross muscle atrophy], [no edema], [no contractures] Neuro: [ CN II-XI grossly intact], [no focal neuro deficits] Psych: [Alert], [oriented], [appropriate affect] A total of 35 minutes of time were spent preparing this complex discharge summary. Patient was discharged on 06/11/2024. Patient Condition at Discharge: Serious Plan - Discharge Summary New Discharge Prescriptions: New Spironolactone [Aldactone] 25 mg PO DAILY #30 tab Amoxic-Pot Clav 875-125Mg [Augmentin 875-125] 1 each PO Q12HR #4 tab predniSONE 10 mg PO DAILY #10 tab Continue Sennosides-Docusate Sodium [Senokot-S] 1 tab PO BID Potassium Chloride ER [K-Dur 20] 40 meq PO DAILY Pantoprazole [Protonix] 40 mg PO DAILY Metoprolol Tartrate [Lopressor] 25 mg PO BID Ipratropium-Albuterol Nebulize [Duoneb 0.5 mg-3 mg/3 ml Soln] 3 ml INHALATION RT-TID Ferrous Sulfate [Iron (65 MG Elemental)] 325 mg PO BID Budesonide [Pulmicort] 0.5 mg INHALATION RT-BID Rosuvastatin [Crestor] 20 mg PO DAILY Torsemide [Demadex] 20 mg PO DAILY Multivitamins, Thera [Multivitamin (formulary)] 1 tab PO DAILY Apixaban [Eliquis] 5 mg PO BID Folic Acid 1 mg PO DAILY Amiodarone [Cordarone] 200 mg PO BID Discharge Medication List Amiodarone [Cordarone] 200 mg PO BID 06/07/24 [History] Apixaban [Eliquis] 5 mg PO BID 06/07/24 [History] Budesonide [Pulmicort] 0.5 mg INHALATION RT-BID 06/07/24 [History] Ferrous Sulfate [Iron (65 MG Elemental)] 325 mg PO BID 06/07/24 [History] Folic Acid 1 mg PO DAILY 06/07/24 [History] Ipratropium-Albuterol Nebulize [Duoneb 0.5 mg-3 mg/3 ml Soln] 3 ml INHALATION RT-TID 06/07/24 [History] Metoprolol Tartrate [Lopressor] 25 mg PO BID 06/07/24 [History] Multivitamins, Thera [Multivitamin (formulary)] 1 tab PO DAILY 06/07/24 [History] Pantoprazole [Protonix] 40 mg PO DAILY 06/07/24 [History] Potassium Chloride ER [K-Dur 20] 40 meq PO DAILY 06/07/24 [History] Rosuvastatin [Crestor] 20 mg PO DAILY 06/07/24 [History] Sennosides-Docusate Sodium [Senokot-S] 1 tab PO BID 06/07/24 [History] Torsemide [Demadex] 20 mg PO DAILY 06/07/24 [History] Amoxic-Pot Clav 875-125Mg [Augmentin 875-125] 1 each PO Q12HR #4 tab 06/11/24 [Rx] Spironolactone [Aldactone] 25 mg PO DAILY #30 tab 06/11/24 [Rx] predniSONE 10 mg PO DAILY #10 tab 06/11/24 [Rx] Follow up Appointment(s)/Referral(s): Marcelino Noble MD [Primary Care Provider] - 1-2 days Margy Kelley MD [STAFF PHYSICIAN] - 1 Week Patient Instructions/Handouts: COPD (Chronic Obstructive Pulmonary Disease) (IP) Activity/Diet/Wound Care/Special Instructions: Please, follow up with your PCP and lung doctor Discharge Disposition: HOME WITH HOME HEALTH SERVICES
[2024-06-11] MEDS: POTASSIUM CHLORIDE ER 20 MEQ TAB.ER PO SCH (14:30)
== END 2024-06-11 15:37 | disposition home health service (06) | DRG 313 ==
LOC: EC 20:22 → 6NMEDSUR 22:23 → OBSVTOIN 06-08 15:10
PROVIDERS: ADMIT Internal Medicine; ATTEND Internal Medicine
DX: R07.89 Other chest pain (principal); I50.33 Acute on chronic diastolic (congestive) heart failure; J96.21 Acute and chronic respiratory failure with hypoxia; J43.9 Emphysema, unspecified; E87.1 Hypo-osmolality and hyponatremia; I48.19 Other persistent atrial fibrillation; I48.92 Unspecified atrial flutter; D64.9 Anemia, unspecified; D72.829 Elevated white blood cell count, unspecified; E78.5 Hyperlipidemia, unspecified; E83.51 Hypocalcemia; E87.6 Hypokalemia; F32.A Depression, unspecified; F41.9 Anxiety disorder, unspecified; I25.10 Atherosclerotic heart disease of native coronary artery without angina pectoris; I44.0 Atrioventricular block, first degree; Z11.52 Encounter for screening for COVID-19; K57.30 Diverticulosis of large intestine without perforation or abscess without bleeding; Z79.01 Long term (current) use of anticoagulants; Z79.899 Other long term (current) drug therapy; Z87.891 Personal history of nicotine dependence; Z95.5 Presence of coronary angioplasty implant and graft; Z96.653 Presence of artificial knee joint, bilateral; Z99.81 Dependence on supplemental oxygen; Z88.0 Allergy status to penicillin; Z88.8 Allergy status to other drugs, medicaments and biological substances
CPT/HCPCS: 36415; 71045; 71046; 71275; 74177; 80048; 80053; 81003; 83605; 83690; 83735; 83880; 84100; 84132; 84145; 84484; 85025; 85027; 85610; 85730; 87636; 93005; 94640; 94660; 94760; 96361; 96374; 99285

== ENCOUNTER 2024-10-19 06:50 | Day surgery (SDC) | payer MEDICARE ==
[2024-10-19 07:16] VITALS: TEMP 97.1
[2024-10-19] MEDS: IV FLUID CONTINUATION 1,000 ML IV ONE (07:16)
[2024-10-19] MEDS: LACTATED RINGERS 1,000 ML IV SCH (07:28)
[2024-10-19 07:29] LABS: Glucose,Whole Blood 98 mg/dL (70-110)
[2024-10-19] MEDS ORDERED: LIDOCAINE 2% (PF) 20 MG/ML 5 ML VIAL ONE (07:56)
[2024-10-19] MEDS ORDERED: PROPOFOL 10 MG/ML 20 ML VIAL IV ONE (07:56)
--- NOTE | 2024-10-19 08:30 | P.PCN ---
Date of Procedure: 10/19/24 Procedure(s) Performed: Brief history: Patient is a pleasant 74-year-old white male scheduled for an elective upper endoscopy as well as colonoscopy as a part of evaluation of intermittent dysphagia to solids and painful colon cancer/positive Cologuard Procedure performed: Esophagogastroduodenoscopy with biopsy Colonoscopy with biopsy and snare polypectomy Preoperative diagnosis: Intermittent dysphagia to solids Screening for colon cancer/positive Cologuard Anesthesia: MAC Procedure: After informed consent was obtained from the patient was brought into the endoscopy unit and IV sedation was administered by anesthesia under continuous monitoring. Initially upper endoscopy was done. The Olympus GF 160 video endoscope was inserted inserted into the mouth and esophagus intubated without any difficulty and was gradually advanced into the stomach and duodenum and carefully examined. The bulb and second part of the duodenum appeared normal. The scope was then withdrawn into the stomach adequately insufflated with air and upon careful examination the antrum and body, cardia and fundus appeared normal. The scope was then withdrawn into the esophagus. The GE junction was located at 45 cm to the incisors. It appeared regular with some erythema erosions consistent with LA grade B reflux esophagitis. There was no evidence of esophageal stricture. Rest of the esophagus appeared normal and the patient tolerated the procedure well At this time the patient continued to remain sedation. Initial digital rectal examination was normal. Olympus CF 160 video colonoscope was then inserted into the rectum and gradually advanced to the cecum without any difficulty. Careful examination was performed as the scope was gradually being withdrawn. The prep was excellent. The cecum appeared normal. The ascending colon there were 3 polyps measuring 3 mm 4 mm and 5 mm in size all which were removed by cold biopsy. In the transverse colon there was a 7 mm polyp removed by cold snare polypectomy. In the descending colon there was a 5 mm polyp removed by cold snare polypectomy. Rest of the, ascending colon, transverse colon, descending colon, sigmoid colon and rectum appeared normal. In the rectum there was a 5 mm polyp removed by cold snare polypectomy. Retroflexion was performed in the rectum and no lesions were noted. Patient tolerated the procedure well. Impression: 1. Upper endoscopy revealed distal esophageal erosions consistent with LA grade B reflux esophagitis but no evidence of esophageal stricture 2. Colonoscopy revealed: 3 mm, 4 mm and 6 mm ascending colon polyp status post cold biopsy 5 mm descending colon polyp status post cold snare polypectomy 7 mm transverse colon polyp status post cold snare polypectomy 5 mm rectal polyp status post cold snare polypectomy Recommendations: Findings of this examination were discussed with the patient as well as his family. He was advised to follow-up with the biopsy results. Continue with omeprazole 20 mg daily and follow antireflux measures. If the biopsy reveals adenoma he can have repeat colonoscopy in 3 years
[2024-10-19 08:36] VITALS: RESP 16
[2024-10-19 08:48] VITALS: BP 111/68; PULSE 68
== END 2024-10-19 09:11 | disposition home or self-care (01) ==
LOC: ORWHC2ENDO 06:50
PROVIDERS: ATTEND Internal Medicine Gastroenterology
DX: Z12.11 Encounter for screening for malignant neoplasm of colon (principal); D12.2 Benign neoplasm of ascending colon; D12.3 Benign neoplasm of transverse colon; D12.4 Benign neoplasm of descending colon; D12.8 Benign neoplasm of rectum; R19.5 Other fecal abnormalities; E78.5 Hyperlipidemia, unspecified; I25.10 Atherosclerotic heart disease of native coronary artery without angina pectoris; I48.91 Unspecified atrial fibrillation; G47.33 Obstructive sleep apnea (adult) (pediatric); F41.9 Anxiety disorder, unspecified; F12.90 Cannabis use, unspecified, uncomplicated; F32.A Depression, unspecified; Z99.81 Dependence on supplemental oxygen; Z87.891 Personal history of nicotine dependence; Z95.5 Presence of coronary angioplasty implant and graft; Z79.01 Long term (current) use of anticoagulants; Z88.0 Allergy status to penicillin; Z88.8 Allergy status to other drugs, medicaments and biological substances; Z79.899 Other long term (current) drug therapy
CPT/HCPCS: 88305; 45380; 45385; 43239; J2704; J2003